=== PATIENT | male | born 1975 | race American Indian/Alaskan Native ===

== ENCOUNTER 2018-01-14 18:05 | Inpatient (IN) | payer MEDICAID ==
[2018-01-14] MEDS ORDERED: Iohexol 350 MG/100 ML VIAL ONE (18:20)
--- NOTE | 2018-01-14 18:37 | ED PDOC ---
Arrival/HPI - General Chief Complaint: Chest Pain Time Seen by Provider: 01/14/18 18:05 Historian: Patient - History of Present Illness Narrative History of Present Illness (Text): 01/14/18 18:31 42 y/o M w/ h/o MN, CAD, DM, s/p sternotomy presenting to the ED for chest pain. Per EMS, patient was at his PCP office when he began having left sided chest and back pain. He was noted to have a HR of 33 and blood pressure of 180s systolic. The patient's HR went to 43 without medical intervention and was given 325mg of aspirin en route to the hospital. Per the patient, he had been experiencing intermittent left sided chest pain for the past several days and was concerned this episode was similar to his previous MN in 2007. The patient denies taking any medication for the pain and reports inconsistent medication compliance in general. He denies dizziness, SOB, syncopal episodes, nausea, emesis, fevers, chills, weakness, jaw pain or numbness/ tingling. Time/Duration: Prior to Arrival Symptom Onset: Sudden Symptom Course: Intermittent Severity Level: 5 Activities at Onset: Rest Context: Other (Doctor's office) Past Medical History - Provider Review Nursing Documentation Reviewed: Yes - Travel History Have you recently traveled outside [place] w/in the past 3 mons?: No - Infectious Disease Hx of Infectious Diseases: None - Cardiac Hx Hypertension: Yes - Endocrine/Metabolic Hx Diabetes Mellitus Type 2: Yes - Psychiatric Hx Anxiety: Yes Hx Depression: Yes Hx Substance Use: No - Surgical History Hx Open Heart Surgery: Yes Other/Comment: aortic valve repair. Family/Social History - Physician Review Nursing Documentation Reviewed: Yes Family/Social History: Unknown Family HX Smoking Status: Never Smoked Hx Alcohol Use: Yes (Red wine once in awhile) Frequency of alcohol use: Socially Hx Substance Use: No Allergies/Home Meds Allergies/Adverse Reactions: Allergies pravastatin Allergy (Verified 01/14/18 18:23) PAIN stomach cramp pain. Home Medications: Home Meds Medication Instructions Recorded Confirmed Alogliptin Benzoate [Nesina] 25 mg PO DAILY 01/14/18 01/14/18 Aspirin [Aspirin EC] 325 mg PO DAILY 01/14/18 01/14/18 Atorvastatin [Lipitor] 1 tab PO DAILY 01/14/18 01/14/18 Carvedilol [Coreg] 1 tab PO DAILY 01/14/18 01/14/18 Clopidogrel [Plavix] 1 tab PO DAILY 01/14/18 01/14/18 Metformin HCl [Glucophage] 1,000 mg PO BID 01/14/18 01/14/18 Multivit with Calcium,Iron,Min 1 tab PO DAILY 01/14/18 01/14/18 [Multiple Vitamins For Women] PARoxetine [Paxil] 1 tab PO DAILY 01/14/18 01/14/18 Valsartan [Valsartan] 1 tab PO DAILY 01/14/18 01/14/18 Review of Systems - Physician Review All systems were reviewed & negative as marked: Yes - Review of Systems Respiratory: absent: SOB, Cough, Sputum Cardiovascular: Chest Pain. absent: Palpitations, Edema, Calf Pain Gastrointestinal: absent: Abdominal Pain, Nausea, Vomiting Musculoskeletal: Back Pain. absent: Neck Pain, Joint Swelling Skin: absent: Rash Neurological: absent: Headache, Dizziness, Focal Weakness Physical Exam Vital Signs Reviewed: Yes Vital Signs Temp Pulse Pulse Resp BP Pulse Ox 01/14/18 21:16 65 18 136/64 100 01/14/18 19:17 66 18 131/64 100 01/14/18 18:16 69 01/14/18 18:05 98.0 F 70 17 154/108 H 100 Temperature: Afebrile Blood Pressure: Normal Pulse: Regular Respiratory Rate: Normal Appearance: Positive for: Well-Appearing, Non-Toxic, Comfortable Pain Distress: Mild Mental Status: Positive for: Alert and Oriented X 3 Finger Stick Blood Glucose: 123 - Systems Exam Head: Present: Atraumatic, Normocephalic Pupils: Present: PERRL Extroacular Muscles: Present: EOMI Neck: Present: Normal Range of Motion Respiratory/Chest: Present: Clear to Auscultation, Good Air Exchange. No: Respiratory Distress, Wheezes, Decreased Breath Sounds Cardiovascular: Present: Regular Rate and Rhythm, Normal S1, S2, Other (Healed sternotomy scar ). No: Murmurs Abdomen: Present: Normal Bowel Sounds. No: Tenderness, Distention Back: Present: Normal Inspection. No: Midline Tenderness Upper Extremity: Present: Normal Inspection. No: Cyanosis, Edema Neurological: Present: GCS=15, CN II-XII Intact, Speech Normal Skin: Present: Warm, Dry, Rashes Psychiatric: Present: Alert, Oriented x 3, Normal Insight, Normal Concentration Medical Decision Making ED Course and Treatment: 01/14/18 18:40 Impression 42 y/o M w/ h/o MN presenting with chest and back pain Differential Includes But Is Not Limited To: ACS Aortic Dissection PE Plan --Labs --CXR --CT Angio --Cardiology consult --Reassess & disposition Progress Notes 01/14/2018 18:40 Chest X-ray IMPRESSION: Cardiomegaly. No focal consolidation or pleural effusion. Dictator: Isaak Salgado MD 01/14/18 19:04 SBP 150/100 w/ HR 70s. SL nitroglycerin ordered. Spoke to Dr. Bland(cardiology) who will see the patient. Labs pending. Signout given to Dr. Partida who will resume the patient's care. - Lab Interpretations Lab Results: 01/14/18 18:59 01/14/18 18:59 Lab Results 01/14/18 18:59: PT 11.5, INR 1.01, APTT 30.4 01/14/18 18:59: Sodium 142, Potassium 4.6, Chloride 104, Carbon Dioxide 23, Anion Gap 20, BUN 14, Creatinine 1.0, Est GFR ( Amer) > 60, Est GFR (Non- Af Amer) > 60, Random Glucose 98, Calcium 10.1, Magnesium 1.8, Total Bilirubin 0.9, AST 24, ALT 49, Alkaline Phosphatase 48, Lactate Dehydrogenase 478, Total Creatine Kinase 165, Troponin I < 0.01, NT-Pro-B Natriuret Pep 117, Total Protein 7.7, Albumin 4.8, Globulin 2.9, Albumin/Globulin Ratio 1.7 01/14/18 18:59: WBC 6.1, RBC 5.22, Hgb 14.6, Hct 41.1 L, MCV 78.7 L, MCH 28.0, MCHC 35.5, RDW 13.7, Plt Count 281, MPV 9.5, Gran % 48.9 L, Lymph % (Auto) 40.1 H, [place] % (Auto) 7.5 H, Eos % (Auto) 3.3, Baso % (Auto) 0.2, Gran # 2.99, Lymph # (Auto) 2.5, [place] # (Auto) 0.5, Eos # (Auto) 0.2, Baso # (Auto) 0.01 - RAD Interpretation Radiology Orders: 01/14/18 18:15 CHEST PORTABLE [RAD] Stat 01/14/18 18:16 ANGIOGRAPHY DISECTION PROTOCOL [CT] Stat - Medication Orders Current Medication Orders: Acetaminophen (Tylenol 325mg Tab) 650 mg PO Q4H PRN PRN Reason: Pain, Mild (1-3) Aspirin (Aspirin) 325 mg PO DAILY [facility] Last Admin: 01/17/18 09:20 Dose: 325 mg Atorvastatin Calcium (Lipitor) 20 mg PO DIN [facility] Last Admin: 01/16/18 17:46 Dose: 20 mg Carvedilol (Coreg) 12.5 mg PO BID [facility] Last Admin: 01/17/18 09:20 Dose: 12.5 mg [facility] Pulse and Blood Pressure Document 01/17/18 09:20 KMS (Rec: 01/17/18 09:20 KMS [place] [id number]) Pulse Pulse Rate (60-90) 84 Blood Pressure Blood Pressure (100/60-150/90) 130/60 Dextrose (Dextrose 50% Inj) 0 ml IV STAT PRN; Protocol PRN Reason: Hypoglycemia Protocol Enoxaparin Sodium (Lovenox) 70 mg SC Q12H [facility] PRN Reason: Protocol Furosemide (Lasix) 40 mg IVP Q12 [facility] Last Admin: 01/17/18 09:20 Dose: 40 mg [facility] Blood Pressure Document 01/17/18 09:20 KMS (Rec: 01/17/18 09:20 KMS [place] [id number]) Blood Pressure Blood Pressure (100/60-150/90) 130/60 IVP Administration Document 01/17/18 09:20 KMS (Rec: 01/17/18 09:20 KMS [place] [id number]) Charges for Administration # of IVP Administrations 1 Dextrose (Dextrose 5% In Water 1000 Ml) 1,000 mls @ 0 mls/hr IV .Q0M PRN; Protocol; Per Protocol PRN Reason: Hypoglycemia Protocol Insulin Human Regular (Humulin R Low) 0 units SC ACHS [facility] PRN Reason: Protocol Last Admin: 01/17/18 08:20 Dose: Not Given Non-Admin Reason: Blood Sugar Parameter MAR Blood Glucose Document 01/17/18 08:20 KMS (Rec: 01/17/18 08:20 KMS [facility] [id number]) Blood Glucose Finger Stick Blood Glucose (70-120) 109 Losartan Potassium (Cozaar) 100 mg PO DAILY [facility] Last Admin: 01/17/18 09:20 Dose: 100 mg Nitroglycerin (Nitrostat Sl Tab) 0.4 mg SL Q5M PRN PRN Reason: Pain, moderate (4-7) Pantoprazole Sodium (Protonix Ec Tab) 40 mg PO 0600 [facility] Last Admin: 01/17/18 05:17 Dose: 40 mg Paroxetine HCl (Paxil) 10 mg PO DAILY [facility] Last Admin: 01/17/18 09:20 Dose: 10 mg Potassium Chloride (K-Dur 20 Meq Er Tab) 20 meq PO BRK [facility] Last Admin: 01/17/18 07:56 Dose: 20 meq Discontinued Medications Clopidogrel Bisulfate (Plavix) 75 mg PO DAILY [facility] Last Admin: 01/15/18 09:52 Dose: Not Given Non-Admin Reason: Patient Refused Heparin Sodium (Porcine) (Heparin) 4,000 units IV ONCE ONE PRN Reason: Protocol Stop: 01/14/18 20:34 Last Admin: 01/14/18 20:54 Dose: 4,000 units eMAR Start Stop Document 01/14/18 20:54 AD (Rec: 01/14/18 20:54 AD [id number]) Intravenous Solution Start Date 01/14/18 Start Time 20:54 MAR aPTT Document 01/14/18 20:54 AD (Rec: 01/14/18 20:54 AD [id number]) aPTT aPTT (secs) 30.4 Heparin Sodium (Porcine) (Heparin) 4,400 units IV STAT STA Stop: 01/15/18 12:17 Last Admin: 01/15/18 12:25 Dose: 4,400 units eMAR Start Stop Document 01/15/18 12:25 EUSTL (Rec: 01/15/18 12:25 EUSTL [id number]) Intravenous Solution Start Date 01/15/18 Start Time 12:25 Heparin Sodium (Porcine) (Heparin) 4,400 units IVP STAT STA PRN Reason: Protocol Stop: 01/16/18 08:56 Last Admin: 01/16/18 09:10 Dose: 4,400 units MAR aPTT Document 01/16/18 09:10 RDS (Rec: 01/16/18 09:10 RDS [id number]) aPTT aPTT (secs) 47.3 IVP Administration Document 01/16/18 09:10 RDS (Rec: 01/16/18 09:10 RDS [id number]) Charges for Administration # of IVP Administrations 1 Heparin Sodium (Porcine) (Heparin) 4,400 units IVP STAT STA PRN Reason: Protocol Stop: 01/16/18 23:34 Last Admin: 01/16/18 23:47 Dose: 4,400 units MAR aPTT Document 01/16/18 23:47 CDE (Rec: 01/16/18 23:47 CDE [id number]) aPTT aPTT (secs) 48.3 IVP Administration Document 01/16/18 23:47 CDE (Rec: 01/16/18 23:47 CDE [id number]) Charges for Administration # of IVP Administrations 1 Heparin Sodium/Sodium Chloride (Heparin 65177 Units/250ml 1/2 Normal Saline) 25 ,000 units in 250 mls @ 10.049 mls/hr IV .Q24H YUMIKO; 8.354 UNITS/KG/HR PRN Reason: Protocol Last Admin: 01/14/18 20:55 Dose: 14.435 mls/hr eMAR Start Stop Document 01/14/18 20:55 AD (Rec: 01/14/18 20:55 AD [id number]) Intravenous Solution Start Date 01/14/18 Start Time 20:55 Heparin Sodium/Sodium Chloride (Heparin 96457 Units/250ml 1/2 Normal Saline) 25 ,000 units in 250 mls @ 10.049 mls/hr IV .Q24H YUM[place]KO; 8.354 UNITS/KG/HR PRN Reason: Protocol Last Admin: 01/17/18 06:48 Dose: 8.35 units/kg/hr, 10.044 mls/hr eMAR Start Stop Document 01/17/18 06:48 CDE (Rec: 01/17/18 06:49 CDE [id number]) Intravenous Solution Start Date 01/17/18 Start Time 06:48 Titration Intervention Document 01/17/18 06:48 CDE (Rec: 01/17/18 06:49 CDE [id number]) Titration Intake Cumulative Intake (Rx) 500 Waste Amount 0 Container Volume 250 Titration Dosing Titration Dose 8.35 IV Rate 10.044 Intake/Decrease Started/Running Cumulative Dose 61205 Nitroglycerin (Nitrostat Sl Tab) 0.4 mg SL STAT STA Stop: 01/14/18 19:04 Last Admin: 01/14/18 19:17 Dose: 0.4 mg Disposition/Present on Arrival - Present on Arrival Any Indicators Present on Arrival: No History of DVT/PE: No History of Uncontrolled Diabetes: No Urinary Catheter: No History of Decub. Ulcer: No History Surgical Site Infection Following: None - Disposition Have Diagnosis and Disposition been Completed?: Yes Diagnosis: Chest pain Disposition: HOSPITALIZED Disposition Time: 19:00 Patient Problems: Current Active Problems Problem Status Onset Chest pain Acute Condition: GOOD
--- NOTE | 2018-01-14 18:41 | RAD ---
Date of service: 01/14/2018 HISTORY: bradycrdia w/ back pain COMPARISON: No prior. FINDINGS: LUNGS: No active pulmonary disease. PLEURA: No significant pleural effusion identified, no pneumothorax apparent. CARDIOVASCULAR: Prior sternotomy with sternal wires in place. Cardiomegaly. OSSEOUS STRUCTURES: No significant abnormalities. VISUALIZED UPPER ABDOMEN: Normal. OTHER FINDINGS: None. IMPRESSION: Cardiomegaly. No focal consolidation or pleural effusion.
[2018-01-14 19:05] LABS: BASO # 0.01 K/mm3 (0.0-2.0); BASO % 0.2 % (0.0-3.0); EOS # 0.2 (0.0-0.7); EOS % 3.3 % (1.5-5.0); GRAN # 2.99 (1.4-6.5); GRAN % 48.9 % (50.0-68.0); HEMOGLOBIN 14.6 g/dL (14.0-18.0); LYMPH # 2.5 (1.2-3.4); LYMPH % 40.1 % (22.0-35.0); MEAN CELL VOLUME 78.7 fl (80.0-105.0); MEAN CORPUSCULAR HGB CONC 35.5 g/dl (31.0-37.0); MEAN PLATELET VOLUME 9.5 fl (7.0-11.0); MONO # 0.5 (0.1-0.6); MONO % 7.5 % (1.0-6.0); RBC 5.22 10^6/uL (3.5-6.1); RED CELL DISTRIBUTION WIDTH 13.7 % (11.5-14.5); WHITE BLOOD COUNT 6.1 10^3/ul (4.5-11.0)
[2018-01-14 19:14] LABS: INR 1.01; PARTIAL THROMBOPLASTIN TIME 30.4 Seconds (25.1-36.5); PROTHROMBIN TIME 11.5 SECONDS (9.4-12.5)
[2018-01-14 19:18] LABS: ALB/GLOB RATIO 1.7 (1.1-1.8); ALBUMIN 4.8 g/dL (3.0-4.8); ALT/SGPT 49 U/L (7-56); AST/SGOT 24 U/L (17-59); BLOOD UREA NITROGEN 14 mg/dL (7-21); CALCIUM 10.1 mg/dL (8.4-10.5); GFR NON-AFRICAN AMERICAN > 60
--- NOTE | 2018-01-14 19:25 | ED PDOC ---
Physical Exam Vital Signs Temp Pulse Pulse Resp BP Pulse Ox 01/14/18 19:17 66 18 131/64 100 01/14/18 18:16 69 01/14/18 18:05 98.0 F 70 17 154/108 H 100 Finger Stick Blood Glucose: 123 Medical Decision Making ED Course and Treatment: 01/14/18 19:05 Patient has a past medical history of [place], CAD, diabetes, AVR, complaining of left-sided chest pain. Was at PMDs office, had chest pain became hypertensive in ryann 180s, finesse to the 30s, improved w/ asa. Currently pending labs and Angio Chest CT to rule out aortic dissection. Pt non-compliant w/ plavix. 01/14/18 20:30 EKG reviewed-66, NSR, Bigeminy w/ PVCs, No stemi. No previous comparison ASA given previously Labs and imaging reviewed Elevated Heart score: 5 RF: 2 EK Age: 0 Story: 2 troponin:0 trop, and bnp unremarkable. no dissection appreciate consult w/ Dr. Bland- we are to start heparin and place pt on tele if CT is negative. 01/14/2018 20:08 Angio Chest/Abd/Pelvis CT IMPRESSION: No acute findings or significant abnormalities are noted within the abdomen and pelvis. No evidence of aortic dissection aneurysm, or other vascular abnormalities. No acute findings or significant abnormalities within the chest. Dictator: Remedios Sevilla MD 01/14/18 20:51 Pt does not remember his PMD that he went to earlier ?Dr. Bergman?, will admit to hospitalist. appreciate consult w/ Dr. Keane- we are to admit under hospitalist service - Lab Interpretations Lab Results: 01/14/18 18:59 01/14/18 18:59 Lab Results 01/14/18 18:59: PT 11.5, INR 1.01, APTT 30.4 01/14/18 18:59: Sodium 142, Potassium 4.6, Chloride 104, Carbon Dioxide 23, Anion Gap 20, BUN 14, Creatinine 1.0, Est GFR ( Amer) > 60, Est GFR (Non- Af Amer) > 60, Random Glucose 98, Calcium 10.1, Magnesium 1.8, Total Bilirubin 0.9, AST 24, ALT 49, Alkaline Phosphatase 48, Lactate Dehydrogenase 478, Total Creatine Kinase 165, Troponin I < 0.01, NT-Pro-B Natriuret Pep 117, Total Protein 7.7, Albumin 4.8, Globulin 2.9, Albumin/Globulin Ratio 1.7 01/14/18 18:59: WBC 6.1, RBC 5.22, Hgb 14.6, Hct 41.1 L, MCV 78.7 L, MCH 28.0, MCHC 35.5, RDW 13.7, Plt Count 281, MPV 9.5, Gran % 48.9 L, Lymph % (Auto) 40.1 H, [place] % (Auto) 7.5 H, Eos % (Auto) 3.3, Baso % (Auto) 0.2, Gran # 2.99, Lymph # (Auto) 2.5, [place] # (Auto) 0.5, Eos # (Auto) 0.2, Baso # (Auto) 0.01 - RAD Interpretation Radiology Orders: 01/14/18 18:15 CHEST PORTABLE [RAD] Stat 01/14/18 18:16 ANGIOGRAPHY DISECTION PROTOCOL [CT] Stat - Medication Orders Current Medication Orders: Heparin Sodium/Sodium Chloride (Heparin 74095 Units/250ml 1/2 Normal Saline) 25 ,000 units in 250 mls @ 14.435 mls/hr IV .[id number] YUM[place]KO; 12 UNITS/KG/HR PRN Reason: Protocol Discontinued Medications Heparin Sodium (Porcine) (Heparin) 4,000 units IV ONCE ONE PRN Reason: Protocol Stop: 01/14/18 20:34 Nitroglycerin (Nitrostat Sl Tab) 0.4 mg SL STAT STA Stop: 01/14/18 19:04 Last Admin: 01/14/18 19:17 Dose: 0.4 mg - Scribe Statement The provider has reviewed the documentation as recorded by the Leigh Grullon Provider Scribe Attestation: All medical record entries made by the Leigh were at my direction and personally dictated by me. I have reviewed the chart and agree that the record accurately reflects my personal performance of the history, physical exam, medical decision making, and the department course for this patient. I have also personally directed, reviewed, and agree with the discharge instructions and disposition. Disposition/Present on Arrival - Present on Arrival Any Indicators Present on Arrival: No History of DVT/PE: No History of Uncontrolled Diabetes: No Urinary Catheter: No History of Decub. Ulcer: No History Surgical Site Infection Following: None - Disposition Have Diagnosis and Disposition been Completed?: Yes Diagnosis: Chest pain Disposition: HOSPITALIZED Disposition Time: 20:30 Patient Problems: Current Active Problems Problem Status Onset Chest pain Acute Condition: GOOD Discharge Instructions (ExitCare): Chest Pain (ED) Referrals: PCP,NO [Primary Care Provider] - Follow up with primary Forms: [employer] (Latvian)
[2018-01-14 19:34] LABS: B-TYPE NATRIURETIC PEPTIDE 117 pg/mL (0-450); TROPONIN I < 0.01 ng/mL
[2018-01-14] MEDS ORDERED: Heparin25000 units/250ml 1/2NS 25,000 UNITS/250 ML BAG IV SCH (20:45)
[2018-01-14] MEDS ORDERED: Dextrose 50% SYRINGE Inj (50 ml) IV PRN (21:33)
--- NOTE | 2018-01-14 21:45 | CP.PCM.HP ---
<Carolyne Spencer - Last Filed: 01/14/18 21:54> History of Present Illness - History of Present Illness History of Present Illness: PGY-1 H&P for Dr. Keane's service Patient is a 42 yo male w/ PMH of [place], CAD, DM2, HTN, anxiety, and depression who presents to the hospital for evaluation of low heart rate, chest pain, and back pain. Patient reports he was at his doctors office when she noted patient to have an elevated blood pressure and low heart rate in the 30s. His PCP suggested he come to the emergency department. Patient states this chest pain has been ongoing daily since his aortic valve replacement about 2-3 years ago. He describes the pain to be a sharp pain radiating to his back, daily and constant in nature, 4/10 in pain currently, worsened when he exerts himself. He says he took nothing at home for the pain for relief. Patient states the pain started as soon as he awoke today and occurs at rest but worsened with exertion. He had a prior IL 9 years ago but this episode is not similar to the one he as prior. PMH- IL, CAD, HTN, DM, anxiety, depression PSH- Aortic valve replacement FH- HTN, DM, dementia (mom) Meds: coreg 25mg daily, lipitor 20mg daily, alogliptin 25d, plavix 75mg daily, asa 325 daily, valsartan 320mg daily, paxil 10mg daily, metformin 1000mg bid Allergies: pravstatin (muscle cramps) Social: Denies tobacco and drug use; 1 wine glass per month code: Full Code PMD: Does not remember (dr. garnett in [place]??) Present on Admission - Present on Admission Any Indicators Present on Admission: No Review of Systems - Constitutional Constitutional: Excessive Sweating, Headache, Weight Loss. absent: Chills, Fatigue, Fever - EENT Eyes: absent: Blind Spots, Blurred Vision, Change in Vision Ears: absent: Dizziness - Cardiovascular Cardiovascular: Chest Pain, Chest Pain at Rest, Chest Pain with Activity, Diaphoresis, Radiating Pain. absent: Dyspnea, Dyspnea on Exertion, Pain Radiating to Arm/Neck/Jaw, Lightheadedness - Respiratory Respiratory: absent: Cough, Dyspnea - Gastrointestinal Gastrointestinal: absent: Abdominal Pain, Constipation, Diarrhea, Nausea, Vomiting - Genitourinary Genitourinary: absent: Change in Urinary Stream, Difficulty Urinating, Dysuria - Musculoskeletal Musculoskeletal: Back Pain. absent: Numbness, Tingling - Neurological Neurological: Headaches. absent: Dizziness Past Patient History - Infectious Disease Hx of Infectious Diseases: None - Past Social History Smoking Status: Never Smoked - CARDIAC Hx Hypertension: Yes - ENDOCRINE/METABOLIC Hx Diabetes Mellitus Type 2: Yes - PSYCHIATRIC Hx Anxiety: Yes Hx Depression: Yes Hx Substance Use: No - SURGICAL HISTORY Hx Open Heart Surgery: Yes Other/Comment: aortic valve repair. Meds Allergies/Adverse Reactions: Allergies Allergy/AdvReac Type Severity Reaction Status Date / Time pravastatin Allergy PAIN Verified 01/14/18 18:23 Physical Exam - Constitutional Appears: Non-toxic, No Acute Distress - Head Exam Head Exam: NORMAL INSPECTION, NORMOCEPHALIC - Eye Exam Eye Exam: EOMI, Normal appearance. absent: Nystagmus, Scleral icterus - ENT Exam ENT Exam: Mucous Membranes Moist, Normal Exam - Respiratory Exam Respiratory Exam: Clear to Auscultation Bilateral, NORMAL BREATHING PATTERN. absent: Rales, Rhonchi, Wheezes - Cardiovascular Exam Cardiovascular Exam: REGULAR RHYTHM, +S1, +S2. absent: Bradycardia, Tachycardia - GI/Abdominal Exam GI & Abdominal Exam: Normal Bowel Sounds, Soft. absent: Distended, Firm, Guarding, Tenderness - Extremities Exam Extremities exam: Positive for: normal inspection. Negative for: calf tenderness, pedal edema - Back Exam Back exam: NORMAL INSPECTION - Neurological Exam Neurological exam: Alert, Oriented x3 - Psychiatric Exam Psychiatric exam: Normal Affect, Normal Mood - Skin Skin Exam: Intact, Normal Color Results - Vital Signs Recent Vital Signs: Last Vital Signs Temp 98.0 F 01/14/18 18:05 Pulse 65 01/14/18 21:16 Resp 18 01/14/18 21:16 BP 136/64 01/14/18 21:16 Pulse Ox 100 01/14/18 21:16 - Labs Result Diagrams: 01/14/18 18:59 01/14/18 18:59 Assessment & Plan - Assessment and Plan (Free Text) Assessment: Patient is a 42 yo male who presents to hospital for evaluation of low heart rate, chest pain, and back pain; initial troponins negative Plan: Chest Pain Cardiology Consulted: Dr. Bland- Heparin drip started; further recommendations apprecaited Heart Healthy Diet w/ carb diet; NPO past midnight R/O ACS; Trop <0.01; Repeat EKG q6 x3; Repeat Cardiac ISO q6 x3 Coreg 25mg po daily, Lipitor 20mg po daily, Plavix 75mg po daily, Aspirin 325mg po daily Nitroglycerin 0.4mg SL prn Heparin drip 86857 units HTN Valsartan 320mg po daily CAD Lipitor 20mg po din sangeetha DM Accuchecks Hypoglycemic protocol ISS- low dose Hx of depression Paxil 10mg po daily PPX: DVT ppx: Heparin drip 2500 units GI ppx: Protonix 40mg tab <Tyson Keane - Last Filed: 01/18/18 06:13> Results - Vital Signs Recent Vital Signs: Last Vital Signs Temp 97.9 F 01/18/18 00:01 Pulse 67 01/18/18 00:01 Resp 18 01/18/18 00:01 BP 114/55 L 01/18/18 00:01 Pulse Ox 98 01/17/18 06:00 - Labs Result Diagrams: 01/17/18 06:45 01/17/18 06:45 Labs: Laboratory Results - last 24 hr 01/17/18 01/17/18 01/17/18 06:45 06:45 06:45 WBC 5.7 RBC 5.21 Hgb 14.2 Hct 41.3 L MCV 79.3 L MCH 27.3 MCHC 34.4 RDW 14.0 Plt Count 264 MPV 9.0 Gran % 46.8 L Lymph % (Auto) 39.8 H [place] % (Auto) 10.6 H Eos % (Auto) 2.8 Baso % (Auto) 0.0 Gran # 2.68 Lymph # (Auto) 2.3 [place] # (Auto) 0.6 Eos # (Auto) 0.2 Baso # (Auto) 0.00 APTT 59.5 H Sodium 142 Potassium 3.9 Chloride 104 Carbon Dioxide 25 Anion Gap 17 BUN 17 Creatinine 1.1 Est GFR ( Amer) > 60 Est GFR (Non-Af Amer) > 60 POC Glucose (mg/dL) Random Glucose 116 H Calcium 9.4 Total Bilirubin 0.9 AST 38 ALT 61 H Alkaline Phosphatase 54 Total Protein 7.4 Albumin 4.4 Globulin 3.0 Albumin/Globulin Ratio 1.5 01/17/18 01/17/18 01/17/18 07:36 11:55 13:15 WBC RBC Hgb Hct MCV MCH MCHC RDW Plt Count MPV Gran % Lymph % (Auto) [place] % (Auto) Eos % (Auto) Baso % (Auto) Gran # Lymph # (Auto) [place] # (Auto) Eos # (Auto) Baso # (Auto) APTT 65.9 H Sodium Potassium Chloride Carbon Dioxide Anion Gap BUN Creatinine Est GFR ( Amer) Est GFR (Non-Af Amer) POC Glucose (mg/dL) 109 104 Random Glucose Calcium Total Bilirubin AST ALT Alkaline Phosphatase Total Protein Albumin Globulin Albumin/Globulin Ratio 01/17/18 01/17/18 16:57 21:44 WBC RBC Hgb Hct MCV MCH MCHC RDW Plt Count MPV Gran % Lymph % (Auto) [place] % (Auto) Eos % (Auto) Baso % (Auto) Gran # Lymph # (Auto) [place] # (Auto) Eos # (Auto) Baso # (Auto) APTT Sodium Potassium Chloride Carbon Dioxide Anion Gap BUN Creatinine Est GFR ( Amer) Est GFR (Non-Af Amer) POC Glucose (mg/dL) 88 91 Random Glucose Calcium Total Bilirubin AST ALT Alkaline Phosphatase Total Protein Albumin Globulin Albumin/Globulin Ratio Attending/Attestation - Attestation I have personally seen and examined this patient.: Yes I have fully participated in the care of the patient.: Yes I have reviewed all pertinent clinical information: Yes
[2018-01-14] MEDS: Insulin Reg-LOW-Coverage SC SCH (22:30)
[2018-01-14] MEDS: Heparin25000 units/250ml 1/2NS 25,000 UNITS/250 ML BAG IV SCH (23:57)
[2018-01-15 02:33] VITALS: BMI 10.2
[2018-01-15] MEDS: Pantoprazole 40 mg EC Tab PO SCH (05:41)
[2018-01-15] MEDS: Insulin Reg-LOW-Coverage SC SCH ×4 (07:43→21:45)
--- NOTE | 2018-01-15 12:06 | CT ---
Date of service: 01/14/[address] protocol Indication: bradycardia w/ elevated BP and back pain Technique: Contiguous axial images of the chest, abdomen, and pelvis. Coronal and Sagittal reformats generated and reviewed. This CT exam was performed using 1 or more of the following dose reduction techniques: Automated exposure control, adjustment of the MAA and/or kV according to patient size, and/or use of iterative reconstruction technique. 100 mL Omnipaque 350 IV. Radiation dose: Total exam DLP = 2731.90 MGy-cm. Comparison: Chest x-ray performed 01/14/18 Findings: Visualized portions of the inferior thyroid gland appear unremarkable. The mediastinal and hilar vascular structures appear within normal limits. Cardiomegaly. No large central or segmental pulmonary embolus evident. No evidence of aortic dissection or aneurysmal dilatation. Atherosclerotic calcifications of the aorta an branches. No focal consolidation. No pleural effusion. No pneumothorax. No suspicious pulmonary nodules measuring greater than 5 mm. Hypoattenuation of the liver compatible with hepatic steatosis. The spleen, kidneys, pancreas, adrenal glands, and gallbladder appear unremarkable. The stomach is nondistended. Small hiatal hernia/distal esophageal wall thickening. The bowel loops appear within normal limits of caliber without evidence of intestinal obstruction. There is no definite free air. The urinary bladder appears unremarkable. Bilateral gynecomastia. Degenerative changes of the spine. Median sternotomy wires. Impression: No acute pathology identified. Additional findings as above. Preliminary impression was provided by virtual radiologic.
[2018-01-15] MEDS: Potassium Chloride 20 mEq ER Tab PO SCH (12:37)
--- NOTE | 2018-01-15 23:13 | CON ---
Copied To: Jaskaran Loomis MD Attending MD: Jaskaran Loomis MD DATE: 01/15/2018 REASON FOR CONSULTATION: Palpitation, ventricular bigeminy as well as chest tightness. HISTORY OF PRESENT ILLNESS: The patient is 42-years old, morbidly obese male, who according to him underwent aortic valve repair 3 years ago at 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 The patient was placed on aspirin and Plavix, however, he did not take any Plavix because of rectal bleeding. The patient went to his primary physician to renew his metformin, however, because of abnormal EKG, was referred for admission. The patient denies any chest pain at this time. SOCIAL HISTORY: The patient is non-smoker. MEDICATIONS: Aspirin 325 mg once a day, Coreg 12.5 mg once a day, Cozaar 100 mg once a day, intravenous heparin infusion therapeutic regimen for acute coronary syndrome, Lipitor 20 mg once a day, Paxil 10 mg once a day. REVIEW OF SYSTEMS: The patient has history of anxiety. He denies any auditory hallucinations, but he states that he see at times visions. PHYSICAL EXAMINATION GENERAL: The patient is a middle aged male who does not appear to be in acute distress. VITAL SIGNS: Blood pressure 126/79, heart rate 63, temperature 97.9, respirations 20. HEENT: Normocephalic. CHEST: Absent breath sound over the bases. HEART: S1, S2, irregular. ABDOMEN: Soft. EXTREMITIES: 1+ pitting edema. LABORATORY DATA: Hemoglobin and hematocrit is 14.6 and 41.1. White count and platelet count are within normal limits. Today's SMA-7 is entirely within normal limits. Two sets of troponins are negative. INR is 1.01. The latest PTT is 49.1. Chest CT angio report, no acute pathology identified. Chest x-ray revealed cardiomegaly with [id number] congestive heart failure. Preliminary echocardiographic study revealed severe biventricular failure. ASSESSMENT: 1. Congestive heart failure. 2. Chest pain, myocardial infarction is ruled out. 3. Status post aortic valve repair 2 years ago, 4. History of anxiety. RECOMMENDATIONS: Continue intravenous heparin infusion therapeutic regimen, continue Cozaar 12.5 mg twice a day, aspirin 325 mg once a day, Coreg 12.5 mg twice a day, start Lasix at 40 mg intravenously twice a day with K-Dur 20 mEq orally once a day. I will thoroughly discuss the case with the patient's mother, who just arrived to the floor to get a detailed past medical history. I am trying to contact the patient's sticker on in [facility]. Jaskaran Loomis MD
[2018-01-16] MEDS: Heparin25000 units/250ml 1/2NS 25,000 UNITS/250 ML BAG IV SCH ×2 (01:19→23:52)
--- NOTE | 2018-01-16 05:09 | CARD ---
APPROVED REPORT Date of service: 01/15/2018 EKG Measurement Heart [id number] <Conclusion> Sinus rhythm with 1st degree AV block Right bundle branch block Left ventricular hypertrophy with repolarization abnormality Abnormal ECG
--- NOTE | 2018-01-16 05:12 | CARD ---
APPROVED REPORT Date of service: 01/15/2018 EKG Measurement Heart [id number] [id number] <Conclusion> Sinus rhythm with frequent premature ventricular complexes in a pattern of bigeminy Right bundle branch block Voltage criteria for left ventricular hypertrophy Abnormal ECG
--- NOTE | 2018-01-16 05:17 | CARD ---
APPROVED REPORT Date of service: 01/14/2018 EKG Measurement Heart [id number] 186P50 [id number] <Conclusion> Sinus rhythm with frequent premature ventricular complexes in a pattern of bigeminy Right bundle branch block Moderate voltage criteria for LVH, may be normal variant Abnormal ECG
--- NOTE | 2018-01-16 05:40 | CARD ---
APPROVED REPORT Date of service: 01/15/2018 EXAM: Two-dimensional and M-mode echocardiogram with Doppler and color Doppler. INDICATION BRADYCARDIA, CP 2D DIMENSIONS IVSd1.6 (0.7-1.1cm)LVDd5.4 (3.9-5.9cm) PWd1.9 (0.7-1.1cm)LVDs4.9 (2.5-4.0cm) FS (%) 9.6 %LVEF (%)21.0 (>50%) M-Mode DIMENSIONS Left Atrium (MM)4.80 (2.5-4.0cm)Aortic Root3.70 (2.2-3.7cm) Aortic Cusp Exc.2.60 (1.5-2.0cm) Aortic Valve AoV Peak Spyznzrw680.0cm/Andrei Peak GR.13mmHg Mitral Valve MV E Psntquig40.1cm/sMV A Heeuhcgp617.0cm/sE/A ratio0.5 TDI Lateral E' Peak V5.87cm/sMedial E' Peak V5.87cm/sE/Lateral E'9.0 E/Medial E'9.0 Tricuspid Valve TR Peak Whwqzhbm757fo/sRAP [id number] Peak Gr.29mmHg [id number] LEFT VENTRICLE The Left Ventricle is mildly dilated. There is moderate concentric left ventricular hypertrophy. The systolic function is severely impaired. There is global hypokinesis of the left ventricle. RIGHT VENTRICLE The right ventricle is mildly dilated. ATRIA The left atrium is moderately dilated. The right atrium is moderately dilated. The interatrial septum is intact with no evidence for an atrial septal defect. AORTIC VALVE The aortic valve is normal in structure. There is trace aortic regurgitation. MITRAL VALVE The mitral valve is normal in structure. Mitral regurgitation is mild. TRICUSPID VALVE The tricuspid valve is normal in structure. There is mild tricuspid regurgitation. PULMONIC VALVE The pulmonary valve is normal in structure. GREAT VESSELS The aortic root is normal in size. The IVC is normal in size and collapses >50% with inspiration. PERICARDIAL EFFUSION There is no pleural effusion. There is no pericardial effusion. <Conclusion> Four chamber enlargement. Severely reduced LV systolic function with global hypokinesis. Moderate concentric LVH. Mild MR and TR.
[2018-01-16] MEDS: Pantoprazole 40 mg EC Tab PO SCH (07:15)
[2018-01-16] MEDS: Insulin Reg-LOW-Coverage SC SCH ×4 (07:40→21:22)
[2018-01-16] MEDS: Potassium Chloride 20 mEq ER Tab PO SCH (07:57)
[2018-01-16 08:20] LABS: EOS # 0.2 (0.0-0.7); EOS % 2.7 % (1.5-5.0); GRAN # 2.83 (1.4-6.5); GRAN % 51.2 % (50.0-68.0); HEMOGLOBIN 14.7 g/dL (14.0-18.0); LYMPH # 2.2 (1.2-3.4); LYMPH % 38.9 % (22.0-35.0); MEAN CORPUSCULAR HEMOGLOBIN 28.1 pg (25.0-35.0); MEAN CORPUSCULAR HGB CONC 35.5 g/dl (31.0-37.0); MONO # 0.4 (0.1-0.6); MONO % 7.2 % (1.0-6.0); RBC 5.24 10^6/uL (3.5-6.1); RED CELL DISTRIBUTION WIDTH 14.1 % (11.5-14.5); WHITE BLOOD COUNT 5.5 10^3/ul (4.5-11.0)
[2018-01-16 08:49] LABS: ALB/GLOB RATIO 1.6 (1.1-1.8); ALBUMIN 4.5 g/dL (3.0-4.8); ALT/SGPT 55 U/L (7-56); AST/SGOT 29 U/L (17-59); BLOOD UREA NITROGEN 16 mg/dL (7-21); GFR NON-AFRICAN AMERICAN > 60
--- NOTE | 2018-01-16 12:44 | CP.PCM.PN ---
<Marie Snyder - Last Filed: 01/16/18 12:46> Subjective - Date & Time of Evaluation Date of Evaluation: 01/15/18 Time of Evaluation: 10:15 - Subjective Subjective: Marie Snyder, PGY-1 Progress Note for Hospitalist Service Patient seen and examined this morning. No acute events overnight. Patient resting comfortably in bed in no acute distress. On heparin drip. Pulse in the 60s overnight. Admits to improved chest and back pain. No new complaints today. Objective - Vital Signs/Intake and Output Vital Signs (last 24 hours): Temp Pulse Resp BP Pulse Ox 97.4 F L 71 20 118/71 98 01/16/18 00:01 01/16/18 10:00 01/16/18 00:01 01/16/18 09:09 01/15/18 17:29 Intake and Output: 01/16/18 01/16/18 06:59 18:59 Intake Total 1412.5 80 Balance 1412.5 80 - Medications Medications: Current Medications Acetaminophen (Tylenol 325mg Tab) 650 mg PO Q4H PRN PRN Reason: Pain, Mild (1-3) Aspirin (Aspirin) 325 mg PO DAILY [facility] Last Admin: 01/16/18 09:09 Dose: 325 mg Atorvastatin Calcium (Lipitor) 20 mg PO DIN [facility] Last Admin: 01/15/18 17:33 Dose: 20 mg Carvedilol (Coreg) 12.5 mg PO BID [facility] Last Admin: 01/16/18 09:09 Dose: 12.5 mg Dextrose (Dextrose 50% Inj) 0 ml IV STAT PRN; Protocol PRN Reason: Hypoglycemia Protocol Furosemide (Lasix) 40 mg IVP Q12 [facility] Last Admin: 01/16/18 09:09 Dose: 40 mg Dextrose (Dextrose 5% In Water 1000 Ml) 1,000 mls @ 0 mls/hr IV .Q0M PRN; Protocol; Per Protocol PRN Reason: Hypoglycemia Protocol Heparin Sodium/Sodium Chloride (Heparin 07490 Units/250ml 1/2 Normal Saline) 25 ,000 units in 250 mls @ 10.049 mls/hr IV .Q24H YUMIKO; 8.354 UNITS/KG/HR PRN Reason: Protocol Last Titration: 01/16/18 09:15 Dose: 8.35 units/kg/hr, 10.044 mls/hr Insulin Human Regular (Humulin R Low) 0 units SC ACHS [facility] PRN Reason: Protocol Last Admin: 01/16/18 11:52 Dose: Not Given Losartan Potassium (Cozaar) 100 mg PO DAILY [facility] Last Admin: 01/16/18 09:09 Dose: 100 mg Nitroglycerin (Nitrostat Sl Tab) 0.4 mg SL Q5M PRN PRN Reason: Pain, moderate (4-7) Pantoprazole Sodium (Protonix Ec Tab) 40 mg PO 0600 [facility] Last Admin: 01/16/18 07:15 Dose: Not Given Paroxetine HCl (Paxil) 10 mg PO DAILY [facility] Last Admin: 01/16/18 09:09 Dose: 10 mg Potassium Chloride (K-Dur 20 Meq Er Tab) 20 meq PO BRK [facility] Last Admin: 01/16/18 07:57 Dose: 20 meq - Labs Labs: 01/16/18 08:00 01/16/18 08:00 PT 11.5 SECONDS (9.4-12.5) 01/14/18 18:59 INR 1.01 01/14/18 18:59 APTT 47.3 Seconds (25.1-36.5) H 01/16/18 08:00 - Constitutional Appears: No Acute Distress - Head Exam Head Exam: ATRAUMATIC, NORMOCEPHALIC - Eye Exam Eye Exam: EOMI Pupil Exam: PERRL - ENT Exam ENT Exam: Mucous Membranes Moist - Respiratory Exam Respiratory Exam: Clear to Ausculation Bilateral. absent: Respiratory Distress - Cardiovascular Exam Cardiovascular Exam: REGULAR RHYTHM, RRR, +S1, +S2, Murmur - GI/Abdominal Exam GI & Abdominal Exam: Normal Bowel Sounds. absent: Guarding, Rigid - Extremities Exam Extremities Exam: Normal Inspection. absent: Calf Tenderness - Back Exam Back Exam: NORMAL INSPECTION - Neurological Exam Neurological Exam: Alert, Awake, Oriented x3 Assessment and Plan - Assessment and Plan (Free Text) Assessment: This is a 42 year old male with PMH of CHF with reduced EF, aortic valve repair 2 years ago, NV, CAD, HT, depression and anxiety presenting to hospital for management of bradycardia and chest pain. Echo pending. On heparin drip and IV lasix. Awaiting records from [place] due to extensive cardiac history. Troponins are negative at this time. Bradycardia r/o NV -EKG on admission showed rate of 66, NSR with PVC and bigeminy. No STEMI -troponins negative x2 -pulse 60s overnight -holding coreg at this time due to bradycardia -on heparin drip -heart healthy diet -cardiology on consult, Dr. Orona CHF -unknown previous echo -obtaining medical records from [place] -received aortic valce repair two years ago -lasix 40mg IV q12 -echo pending -CT chest final read pending -CXR showed cardiomegaly, no other acute findings History of HTN: -losartan 100mg History of CAD: -Lipitor 20mg DIN History of DM: -hypoglycemic protocol -insulin human regular ACHS History of depression -currently on paroxetine 10mg PPX with heparin and protonix g Patient seen with and case discussed with attending, Dr. Alfaro <Amanda Alfaro R - Last Filed: 01/16/18 13:31> Objective - Vital Signs/Intake and Output Vital Signs (last 24 hours): Temp Pulse Resp BP Pulse Ox 97.4 F L 71 20 118/71 98 01/16/18 00:01 01/16/18 10:00 01/16/18 00:01 01/16/18 09:09 01/15/18 17:29 Intake and Output: 01/16/18 01/16/18 06:59 18:59 Intake Total 1412.5 80 Balance 1412.5 80 - Medications Medications: Current Medications Acetaminophen (Tylenol 325mg Tab) 650 mg PO Q4H PRN PRN Reason: Pain, Mild (1-3) Aspirin (Aspirin) 325 mg PO DAILY [facility] Last Admin: 01/16/18 09:09 Dose: 325 mg Atorvastatin Calcium (Lipitor) 20 mg PO DIN [facility] Last Admin: 01/15/18 17:33 Dose: 20 mg Carvedilol (Coreg) 12.5 mg PO BID [facility] Last Admin: 01/16/18 09:09 Dose: 12.5 mg Dextrose (Dextrose 50% Inj) 0 ml IV STAT PRN; Protocol PRN Reason: Hypoglycemia Protocol Furosemide (Lasix) 40 mg IVP Q12 [facility] Last Admin: 01/16/18 09:09 Dose: 40 mg Dextrose (Dextrose 5% In Water 1000 Ml) 1,000 mls @ 0 mls/hr IV .Q0M PRN; Protocol; Per Protocol PRN Reason: Hypoglycemia Protocol Heparin Sodium/Sodium Chloride (Heparin 84043 Units/250ml 1/2 Normal Saline) 25 ,000 units in 250 mls @ 10.049 mls/hr IV .Q24H YUMIKO; 8.354 UNITS/KG/HR PRN Reason: Protocol Last Titration: 01/16/18 09:15 Dose: 8.35 units/kg/hr, 10.044 mls/hr Insulin Human Regular (Humulin R Low) 0 units SC ACHS YUMIKO PRN Reason: Protocol Last Admin: 01/16/18 11:52 Dose: Not Given Losartan Potassium (Cozaar) 100 mg PO DAILY [facility] Last Admin: 01/16/18 09:09 Dose: 100 mg Nitroglycerin (Nitrostat Sl Tab) 0.4 mg SL Q5M PRN PRN Reason: Pain, moderate (4-7) Pantoprazole Sodium (Protonix Ec Tab) 40 mg PO 0600 [facility] Last Admin: 01/16/18 07:15 Dose: Not Given Paroxetine HCl (Paxil) 10 mg PO DAILY [facility] Last Admin: 01/16/18 09:09 Dose: 10 mg Potassium Chloride (K-Dur 20 Meq Er Tab) 20 meq PO BRK [facility] Last Admin: 01/16/18 07:57 Dose: 20 meq - Labs Labs: 01/16/18 08:00 01/16/18 08:00 PT 11.5 SECONDS (9.4-12.5) 01/14/18 18:59 INR 1.01 01/14/18 18:59 APTT 47.3 Seconds (25.1-36.5) H 01/16/18 08:00 Attending/Attestation - Attestation I have personally seen and examined this patient.: Yes I have fully participated in the care of the patient.: Yes I have reviewed all pertinent clinical information, including history, physical exam and plan: Yes Notes (Text): Please note this note is for 01/15/18. Patient seen and examined by me at 10:20AM with resident 01/15/18. Case including HPI, physical exam, and assessment and plan discussed with resident. Agree with above with following additions/corrections. Patient is a 42-year-old male with past medical history significant for coronary artery disease status post NV, valve repair, type 2 diabetes, hypertension, depression, and anxiety that presented to the emergency room for low heart rate, chest pain, and back pain. Patient states he went to his primary care doctor for metformin refill. At that time he was found to have a heart rate in the 30s and was sent to the ED. Patient states that chest pain and back are chronic and has been going on since have open heart surgery 2 years ago. Patient states he has been feeling more tired and weak lately. He denies any current shortness of breath. No headaches or dizziness. No fevers and chills. No nausea, vomiting, or abdominal pain. No dysuria. No diarrhea or constipation. Physical exam: General: Awake and alert lying in bed in no acute distress HEENT: Normocephalic atraumatic. Pupils equal reactive. Extraocular muscles intact. No scleral icterus. Oropharynx is pink and moist. No pharyngeal erythema or exudate appreciated. Neck is supple. Cardiovascular: Normal S1, S2. No murmurs, rubs, or gallops appreciated Pulmonary: Normal respiratory effort. No rhonchi, rales or wheezing appreciated. Gastrointestinal: Soft, nondistended. nontender. Positive bowel sounds all 4 quadrants, no guarding. Musculoskeletal: Normal range of motion all extremities. No calf tenderness. No edema appreciated. Central nervous system: AAOx3. CN2-12 grossly intact. Dermatologic: Skin warm and dry, positve well healed scar anterior chest wall. Assessment and plan: Patient is a 42-year-old male with past medical history significant for coronary artery disease status post NV, valve repair, type 2 diabetes, hypertension, depression, and anxiety that presented to the emergency room for low heart rate, chest pain, and back pain. 1. Bradycardia. Patient's heart rate in the 60s on potline monitor. Patient is having bigeminy which may be falsely showing up as bradycardia. 2-D echo has been ordered. Cardiology consulted, recommendations appreciated. Restarted on Coreg per cardiology. Continue with heparin drip. Continue to monitor on telemetry. 2. Chest pain/coronary artery disease. Pain is chronic. Continue with Coreg and losartan. Continue Lipitor. Patient is unable to tolerate Plavix secondary to rectal bleeding. Continue with aspirin. Continue heparin drip. Cardiology following, recommendations appreciated. 2-D echo pending. Troponins within normal limits. CTA chest per radiologist showed no acute pathology identified. 3. Hypertension. Continue Coreg. Patient was on valsartan at home. Changed to losartan here. 4. Type 2 diabetes. Continue with insulin sliding scale. Monitor Accu-Cheks. 5. Anxiety and depression. Continue home Paxil. 6. GI/DVT prophylaxis. Protonix and heparin drip. Case was discussed in detail with the patient regarding current diagnosis and treatment plan. Was called in the afternoon by decontamination technician. Patient with ejection fraction of approximately 20% and left ventricular hypertrophy. Patient started on IV Lasix by cardiology. 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
--- NOTE | 2018-01-16 13:18 | CP.PCM.PN ---
<Marie Snyder - Last Filed: 01/16/18 13:14> Subjective - Date & Time of Evaluation Date of Evaluation: 01/16/18 Time of Evaluation: 13:15 - Subjective Subjective: Marie Snyder, PGY-1 Progress Note for Hospitalist Service Patient seen and examined at bedside this morning. No acute events overnight. Pulse was 60-70s overnight. Continuing to receive lasix and on heparin drip. Started on coreg but will hold if SBP <100 or pulse < 60. State last BM was wednesday but does not want stool softeners at this time. Attempting to receive records from [facility]. Admits to chest pain that is improved from admission. No new complaints. Objective - Vital Signs/Intake and Output Vital Signs (last 24 hours): Temp Pulse Resp BP Pulse Ox 97.4 F L 71 20 118/71 98 01/16/18 00:01 01/16/18 10:00 01/16/18 00:01 01/16/18 09:09 01/15/18 17:29 Intake and Output: 01/16/18 01/16/18 06:59 18:59 Intake Total 1412.5 80 Balance 1412.5 80 - Medications Medications: Current Medications Acetaminophen (Tylenol 325mg Tab) 650 mg PO Q4H PRN PRN Reason: Pain, Mild (1-3) Aspirin (Aspirin) 325 mg PO DAILY [facility] Last Admin: 01/16/18 09:09 Dose: 325 mg Atorvastatin Calcium (Lipitor) 20 mg PO DIN [facility] Last Admin: 01/15/18 17:33 Dose: 20 mg Carvedilol (Coreg) 12.5 mg PO BID [facility] Last Admin: 01/16/18 09:09 Dose: 12.5 mg Dextrose (Dextrose 50% Inj) 0 ml IV STAT PRN; Protocol PRN Reason: Hypoglycemia Protocol Furosemide (Lasix) 40 mg IVP Q12 [facility] Last Admin: 01/16/18 09:09 Dose: 40 mg Dextrose (Dextrose 5% In Water 1000 Ml) 1,000 mls @ 0 mls/hr IV .Q0M PRN; Protocol; Per Protocol PRN Reason: Hypoglycemia Protocol Heparin Sodium/Sodium Chloride (Heparin 93048 Units/250ml 1/2 Normal Saline) 25 ,000 units in 250 mls @ 10.049 mls/hr IV .Q24H [facility]; 8.354 UNITS/KG/HR PRN Reason: Protocol Last Titration: 01/16/18 09:15 Dose: 8.35 units/kg/hr, 10.044 mls/hr Insulin Human Regular (Humulin R Low) 0 units SC ACHS [facility] PRN Reason: Protocol Last Admin: 01/16/18 11:52 Dose: Not Given Losartan Potassium (Cozaar) 100 mg PO DAILY [facility] Last Admin: 01/16/18 09:09 Dose: 100 mg Nitroglycerin (Nitrostat Sl Tab) 0.4 mg SL Q5M PRN PRN Reason: Pain, moderate (4-7) Pantoprazole Sodium (Protonix Ec Tab) 40 mg PO 0600 [facility] Last Admin: 01/16/18 07:15 Dose: Not Given Paroxetine HCl (Paxil) 10 mg PO DAILY [facility] Last Admin: 01/16/18 09:09 Dose: 10 mg Potassium Chloride (K-Dur 20 Meq Er Tab) 20 meq PO BRK [facility] Last Admin: 01/16/18 07:57 Dose: 20 meq - Labs Labs: 01/16/18 08:00 01/16/18 08:00 PT 11.5 SECONDS (9.4-12.5) 01/14/18 18:59 INR 1.01 01/14/18 18:59 APTT 47.3 Seconds (25.1-36.5) H 01/16/18 08:00 - Head Exam Head Exam: ATRAUMATIC, NORMAL INSPECTION - Eye Exam Eye Exam: EOMI Pupil Exam: PERRL - ENT Exam ENT Exam: Mucous Membranes Moist - Respiratory Exam Respiratory Exam: Clear to Ausculation Bilateral, NORMAL BREATHING PATTERN. absent: Respiratory Distress - Cardiovascular Exam Cardiovascular Exam: REGULAR RHYTHM, +S1, +S2, Murmur - GI/Abdominal Exam GI & Abdominal Exam: Normal Bowel Sounds. absent: Guarding, Rigid - Extremities Exam Extremities Exam: Normal Inspection. absent: Calf Tenderness - Back Exam Back Exam: NORMAL INSPECTION - Neurological Exam Neurological Exam: Alert, Awake, Oriented x3 - Skin Skin Exam: Normal Color, Warm Assessment and Plan - Assessment and Plan (Free Text) Assessment: This is a 42 year old male with PMH of CHF with reduced EF, aortic valve repair 2 years ago, [place], CAD, HT, depression and anxiety presenting to hospital for management of bradycardia and chest pain. Continuing with heparin drip and IV lasix. Awaiting records from [facility] due to extensive cardiac history. Will need ICD placement and cath per cardiology. Bradycardia r/o AZ -EKG on admission showed rate of 66, NSR with PVC and bigeminy. No STEMI -EKG yesterday showed sinus rhythm at rate of 68 with 1st degree AV block and LVH -troponins negative x3 -pulse 60-70 overnight -started coreg 12.5mg BID but will hold if SBP <100 and pulse <60 -continuing with heparin drip -heart healthy diet -will need ICD placement and cath per cardiology -cardiology on consult, Dr. Orona CHF with reduced EF -echo yesterday revealed EF of 21%, RVSP of 39, four chamber enlargement, global hypokinesis, moderate concentric LVH -obtaining medical records from [facility] - delayed due to holiday weekend -received aortic valce repair two years ago -continue lasix 40mg IV q12 -CT chest revealed no acute findings -CXR showed cardiomegaly, no other acute findings History of HTN: -losartan 100mg History of CAD: -Lipitor 20mg DIN History of DM: -hypoglycemic protocol -insulin human regular ACHS History of depression -currently on paroxetine 10mg PPX with heparin and protonix Patient seen and case discussed with attending, Dr. Alfaro <Amanda Alfaro - Last Filed: 01/16/18 18:32> Objective - Vital Signs/Intake and Output Vital Signs (last 24 hours): Temp Pulse Resp BP Pulse Ox 97.7 F 71 19 112/63 98 01/16/18 12:00 01/16/18 17:46 01/16/18 12:00 01/16/18 17:46 01/15/18 17:29 Intake and Output: 01/16/18 01/16/18 06:59 18:59 Intake Total 1412.5 140 Balance 1412.5 140 - Medications Medications: Current Medications Acetaminophen (Tylenol 325mg Tab) 650 mg PO Q4H PRN PRN Reason: Pain, Mild (1-3) Aspirin (Aspirin) 325 mg PO DAILY [facility] Last Admin: 01/16/18 09:09 Dose: 325 mg Atorvastatin Calcium (Lipitor) 20 mg PO DIN [facility] Last Admin: 01/16/18 17:46 Dose: 20 mg Carvedilol (Coreg) 12.5 mg PO BID [facility] Last Admin: 01/16/18 17:46 Dose: 12.5 mg Dextrose (Dextrose 50% Inj) 0 ml IV STAT PRN; Protocol PRN Reason: Hypoglycemia Protocol Furosemide (Lasix) 40 mg IVP Q12 [facility] Last Admin: 01/16/18 09:09 Dose: 40 mg Dextrose (Dextrose 5% In Water 1000 Ml) 1,000 mls @ 0 mls/hr IV .Q0M PRN; Protocol; Per Protocol PRN Reason: Hypoglycemia Protocol Heparin Sodium/Sodium Chloride (Heparin 17166 Units/250ml 1/2 Normal Saline) 25 ,000 units in 250 mls @ 10.049 mls/hr IV .Q24H [facility]; 8.354 UNITS/KG/HR PRN Reason: Protocol Last Titration: 01/16/18 16:15 Dose: 6.35 units/kg/hr, 7.639 mls/hr Insulin Human Regular (Humulin R Low) 0 units SC ACHS [facility] PRN Reason: Protocol Last Admin: 01/16/18 16:50 Dose: Not Given Losartan Potassium (Cozaar) 100 mg PO DAILY [facility] Last Admin: 01/16/18 09:09 Dose: 100 mg Nitroglycerin (Nitrostat Sl Tab) 0.4 mg SL Q5M PRN PRN Reason: Pain, moderate (4-7) Pantoprazole Sodium (Protonix Ec Tab) 40 mg PO 0600 [facility] Last Admin: 01/16/18 07:15 Dose: Not Given Paroxetine HCl (Paxil) 10 mg PO DAILY [facility] Last Admin: 01/16/18 09:09 Dose: 10 mg Potassium Chloride (K-Dur 20 Meq Er Tab) 20 meq PO BRK [facility] Last Admin: 01/16/18 07:57 Dose: 20 meq - Labs Labs: 01/16/18 08:00 01/16/18 08:00 PT 11.5 SECONDS (9.4-12.5) 01/14/18 18:59 INR 1.01 01/14/18 18:59 APTT 81.3 Seconds (25.1-36.5) H 01/16/18 15:14 Attending/Attestation - Attestation I have personally seen and examined this patient.: Yes I have fully participated in the care of the patient.: Yes I have reviewed all pertinent clinical information, including history, physical exam and plan: Yes Notes (Text): Patient seen and examined by me at 8:30AM with resident. Case including HPI, physical exam, and assessment and plan discussed with resident. Agree with above with following additions/corrections. Patient is a 42-year-old male with past medical history significant for coronary artery disease status post AZ, valve repair, type 2 diabetes, hypertension, depression, and anxiety that presented to the emergency room for low heart rate, chest pain, and back pain. Patient states he is feeling ok. Wants to go home. States he is still having chest pain and back pain. Pain is located on left side and radiates to back. Pain is constant but has been chronic. Denies any shortness of breath. No headaches or dizziness. No fevers or chills. No dysuria. No nausea, vomiting, or abdominal pain. Last bowel movement was 01/14/18. Patient states he wants to wait until he goes home to have bowel movement. Physical exam: General: Awake and alert lying in bed in no acute distress HEENT: Normocephalic atraumatic. Pupils equal reactive. Extraocular muscles intact. No scleral icterus. Oropharynx is pink and moist. No pharyngeal erythema or exudate appreciated. Neck is supple. Cardiovascular: Normal S1, S2. No murmurs, rubs, or gallops appreciated Pulmonary: Normal respiratory effort. No rhonchi, rales or wheezing appreciated. Gastrointestinal: Soft, nondistended. nontender. Positive bowel sounds all 4 quadrants, no guarding. Musculoskeletal: Normal range of motion all extremities. No calf tenderness. No edema appreciated. Central nervous system: AAOx3. CN2-12 grossly intact. Dermatologic: Skin warm and dry, positve well healed scar anterior chest wall. Assessment and plan: Patient is a 42-year-old male with past medical history significant for coronary artery disease status post AZ, valve repair, type 2 diabetes, hypertension, depression, and anxiety that presented to the emergency room for low heart rate, chest pain, and back pain. 1. Acute systolic CHF. 2D echo per on call shows EF of 21%, four-chamber enlargement, severely reduced LV systolic function with global hypokinesis, moderate concentric LVH, mild MR and TR. Continue with Lasix 40 mg IV every 12 hours. Continue with Coreg and Cozaar. Cardiology following, recommendations appreciated. Monitor ins and outs. Monitor daily weights. Continue heparin drip. 2. Bradycardia. Patient's heart rate in the 60s on monitor and storage bin tender. With bigeminy which may be falsely show up as bradycardia. 2-D echo as above. Cardiology consulted, recommendations appreciated. Continue to monitor on telemetry. 3. Chest pain/coronary artery disease. Pain is chronic. Continue with Coreg and losartan. Continue Lipitor. Patient is unable to tolerate Plavix secondary to rectal bleeding. Continue with aspirin. Continue heparin drip. Cardiology following, recommendations appreciated. 2-D echo as above. May need cardiac catheterization. Will need to get in touch with patient's on call at [facility]. Troponins within normal limits. CTA chest per radiologist showed no acute pathology identified. 4. Hypertension. Continue Coreg and losartan. Patient was on valsartan at home. Continue Lasix. 5. Type 2 diabetes. Continue with insulin sliding scale. Continue to monitor Accu-Cheks. 6. Anxiety and depression. Continue home Paxil. 7. GI/DVT prophylaxis. Protonix and heparin drip. Case was discussed in detail with the patient and cardiology Dr. Loomis regarding current diagnosis and treatment plan.
--- NOTE | 2018-01-16 18:42 | PN ---
Copied To: Jaskaran Loomis MD Attending MD: Jaskaran Loomis MD DATE: 01/16/2018 SUBJECTIVE: The patient is comfortable. He has adequate diuresis as intravenous Lasix. He denies any chest pain. PHYSICAL EXAMINATION: VITAL SIGNS: Blood pressure 118/71, heart rate 68, temperature 97.4, respirations 20. HEENT: Normocephalic. CHEST: Bibasilar rhonchi. HEART: S1 and S2 regular. EXTREMITIES: A 1+ pitting edema. LABORATORY DATA: Hemoglobin and hematocrit 14.7 and 41.4, white count and platelet count are within normal limit. Today's SMA-7 is within normal limits except for glucose of 115. Echocardiographic study official report: Four-chamber enlargement, severely reduced left ventricle with global hypokinesis, moderate concentric LVH, mild MR and TR. ASSESSMENT: 1. Biventricular failure. 2. Chest pain, myocardial infarction is ruled out. 3. Status post aortic valve repair 2 years ago. 5. History of anxiety. RECOMMENDATIONS: Case was discussed with Dr. Alfaro and the medical operations supervisor. The patient needs to be maintained on therapeutic intravenous heparin. Continue aspirin 325 mg once a day, Coreg 12.5 mg twice a day, IV Lasix 40 mg intravenously twice a day, K-Dur 20 mEq once a day. Continue Cozaar 12.5 mg twice a day. He did request the open-heart surgery report from [facility] to be faxed to us; however, given the holiday situation, this may not happen until Wednesday, also the case needs to be discussed with the patient's doctor of osteopathy at [facility] as the patient should be considered for cardiac catheterization as well as electrophysiology evaluation for possible ICD placement or a LifeVest placement. If the patient insists on leaving, he needs to sign against medical advice. Jaskaran Loomis MD
[2018-01-17 03:20] VITALS: O2SAT 98
[2018-01-17] MEDS: Pantoprazole 40 mg EC Tab PO SCH (05:17)
[2018-01-17] MEDS: Heparin25000 units/250ml 1/2NS 25,000 UNITS/250 ML BAG IV SCH (06:48)
[2018-01-17 07:26] LABS: EOS # 0.2 (0.0-0.7); EOS % 2.8 % (1.5-5.0); GRAN # 2.68 (1.4-6.5); GRAN % 46.8 % (50.0-68.0); HEMOGLOBIN 14.2 g/dL (14.0-18.0); LYMPH # 2.3 (1.2-3.4); LYMPH % 39.8 % (22.0-35.0); MEAN CELL VOLUME 79.3 fl (80.0-105.0); MEAN CORPUSCULAR HEMOGLOBIN 27.3 pg (25.0-35.0); MEAN CORPUSCULAR HGB CONC 34.4 g/dl (31.0-37.0); MONO # 0.6 (0.1-0.6); MONO % 10.6 % (1.0-6.0); RBC 5.21 10^6/uL (3.5-6.1); WHITE BLOOD COUNT 5.7 10^3/ul (4.5-11.0)
[2018-01-17] MEDS: Potassium Chloride 20 mEq ER Tab PO SCH (07:56)
[2018-01-17 08:01] LABS: ALB/GLOB RATIO 1.5 (1.1-1.8); ALBUMIN 4.4 g/dL (3.0-4.8); ALT/SGPT 61 U/L (7-56); AST/SGOT 38 U/L (17-59); BLOOD UREA NITROGEN 17 mg/dL (7-21); CALCIUM 9.4 mg/dL (8.4-10.5); GFR NON-AFRICAN AMERICAN > 60
[2018-01-17] MEDS: Insulin Reg-LOW-Coverage SC SCH ×3 (08:20→17:00)
[2018-01-17] MEDS: Enoxaparin 80 mg Syringe SC SCH (12:02)
--- NOTE | 2018-01-17 12:35 | PN ---
Copied To: Jaskaran Loomis MD Attending MD: Jaskaran Loomis MD DATE: 01/17/2018 FOLLOWUP SUBJECTIVE: The patient is chest pain free. He has adequate diuresis. No shortness of breath. PHYSICAL EXAMINATION: VITAL SIGNS: Blood pressure 130/60, heart rate 84, temperature 97.5, respirations 20. HEENT: Normocephalic. CHEST: Clear. HEART: S1 and S2 regular. EXTREMITIES: No edema. LABORATORY DATA: Hemoglobin and hematocrit 14.2 and 41.3. White count and platelet count are within normal limits. Today's PTT is 59.5, which is therapeutic for intravenous heparin. SMA-7 is within normal limits except for glucose of 116. ASSESSMENT: 1. Chest pain, myocardial infarction is ruled out. 2. Biventricular failure. 3. Status post aortic valve repair 2 years ago. 4. History of anxiety. RECOMMENDATIONS: Continue aspirin 325 mg once a day, Coreg 12.5 mg once a day, Cozaar 100 mg once a day. Discontinue intravenous heparin and start subcutaneous Lovenox at 60 mg twice a day. The patient was advised to wait until further records are obtained from [facility] and the case will be discussed with his brush finisher if he wants to receive him at [facility] for cardiac catheterization procedure and possible ICD or LifeVest placement. However, the patient wants to leave early tomorrow for some errands that he has to take care of. The case was discussed with Dr. Gamez. Jaskaran Loomis MD
--- NOTE | 2018-01-17 14:11 | CP.PCM.PN ---
<Marie Snyder - Last Filed: 01/17/18 14:26> Subjective - Date & Time of Evaluation Date of Evaluation: 01/17/18 Time of Evaluation: 14:06 - Subjective Subjective: Marie Snyder, PGY-1 Progress Note for Hospitalist Service Patient seen and examined at bedside this morning. No acute events overnight. No new complaints offered today. May need cardiac cath and ACD or lifevest placement per cardiology. Awaiting records from [facility] from previous cardiac workup. Objective - Vital Signs/Intake and Output Vital Signs (last 24 hours): Temp Pulse Resp BP Pulse Ox 98 F 94 H 21 112/67 98 01/17/18 12:00 01/17/18 12:00 01/17/18 12:00 01/17/18 12:00 01/17/18 06:00 Intake and Output: 01/17/18 01/17/18 06:59 18:59 Intake Total 738 Balance 738 - Medications Medications: Current Medications Acetaminophen (Tylenol 325mg Tab) 650 mg PO Q4H PRN PRN Reason: Pain, Mild (1-3) Aspirin (Aspirin) 325 mg PO DAILY [facility] Last Admin: 01/17/18 09:20 Dose: 325 mg Atorvastatin Calcium (Lipitor) 20 mg PO DIN [facility] Last Admin: 01/16/18 17:46 Dose: 20 mg Carvedilol (Coreg) 12.5 mg PO BID [facility] Last Admin: 01/17/18 09:20 Dose: 12.5 mg Dextrose (Dextrose 50% Inj) 0 ml IV STAT PRN; Protocol PRN Reason: Hypoglycemia Protocol Enoxaparin Sodium (Lovenox) 70 mg SC Q12H [facility] PRN Reason: Protocol Last Admin: 01/17/18 12:02 Dose: 70 mg Furosemide (Lasix) 40 mg IVP Q12 [facility] Last Admin: 01/17/18 09:20 Dose: 40 mg Dextrose (Dextrose 5% In Water 1000 Ml) 1,000 mls @ 0 mls/hr IV .Q0M PRN; Protocol; Per Protocol PRN Reason: Hypoglycemia Protocol Insulin Human Regular (Humulin R Low) 0 units SC ACHS [facility] PRN Reason: Protocol Last Admin: 01/17/18 11:30 Dose: Not Given Losartan Potassium (Cozaar) 100 mg PO DAILY [facility] Last Admin: 01/17/18 09:20 Dose: 100 mg Nitroglycerin (Nitrostat Sl Tab) 0.4 mg SL Q5M PRN PRN Reason: Pain, moderate (4-7) Pantoprazole Sodium (Protonix Ec Tab) 40 mg PO 0600 [facility] Last Admin: 01/17/18 05:17 Dose: 40 mg Paroxetine HCl (Paxil) 10 mg PO DAILY [facility] Last Admin: 01/17/18 09:20 Dose: 10 mg Potassium Chloride (K-Dur 20 Meq Er Tab) 20 meq PO BRK [facility] Last Admin: 01/17/18 07:56 Dose: 20 meq - Labs Labs: 01/17/18 06:45 01/17/18 06:45 PT 11.5 SECONDS (9.4-12.5) 01/14/18 18:59 INR 1.01 01/14/18 18:59 APTT 65.9 Seconds (25.1-36.5) H 01/17/18 13:15 - Constitutional Appears: No Acute Distress - Head Exam Head Exam: ATRAUMATIC, NORMAL INSPECTION - Eye Exam Eye Exam: EOMI Pupil Exam: PERRL - ENT Exam ENT Exam: Mucous Membranes Moist - Respiratory Exam Respiratory Exam: Clear to Ausculation Bilateral, NORMAL BREATHING PATTERN. absent: Respiratory Distress - Cardiovascular Exam Cardiovascular Exam: REGULAR RHYTHM, +S1, +S2, Murmur - GI/Abdominal Exam GI & Abdominal Exam: Normal Bowel Sounds. absent: Guarding, Rigid - Extremities Exam Extremities Exam: Normal Inspection. absent: Calf Tenderness - Neurological Exam Neurological Exam: Alert, Awake, Oriented x3 - Skin Skin Exam: Normal Color, Warm Assessment and Plan - Assessment and Plan (Free Text) Assessment: This is a 42 year old male with PMH of CHF with reduced EF, aortic valve repair 2 years ago, [place], CAD, HT, depression and anxiety presenting to hospital for management of bradycardia and chest pain. Continuing with heparin drip and IV lasix. Awaiting records from [facility] due to extensive cardiac history; delayed due to holiday weekend. May need placement of ICD or lifevest placement and cath per cardiology. Patient state he has insurance meeting he has to attend tomorrow morning. Explained to patient that options include AMA due to ongoing cardiac workup. Bradycardia r/o ND -EKG on admission 01/14 showed rate of 66, NSR with PVC and bigeminy. No STEMI -EKG on 01/15 showed sinus rhythm at rate of 68 with 1st degree AV block and LVH -troponins negative x3 -pulse 50-80 overnight with low of 52 -continuing coreg 12.5mg BID but will hold if SBP <100 and pulse <60 -continuing with heparin drip -heart healthy diet -may need ICD or lifevest placement and cath per cardiology -monitoring on tele -cardiology on consult, Dr. Orona CHF with reduced EF -obtaining medical records from [facility] - delayed due to holiday weekend. Will send request tomorrow morning -received aortic valce repair two years ago -continue lasix 40mg IV q12 -echo 01/15 revealed EF of 21%, RVSP of 39, four chamber enlargement, global hypokinesis, moderate concentric LVH -01/14 CT chest revealed no acute findings -01/14 CXR showed cardiomegaly, no other acute findings History of HTN: -losartan 100mg History of CAD: -Lipitor 20mg DIN History of DM: -hypoglycemic protocol -insulin human regular ACHS History of depression -currently on paroxetine 10mg PPX with heparin and protonix Patient seen and case discussed with attending, Dr. Gamez <Jessika Gamez - Last Filed: 01/17/18 17:56> Objective - Vital Signs/Intake and Output Vital Signs (last 24 hours): Temp Pulse Resp BP Pulse Ox 98 F 67 21 112/67 98 01/17/18 12:00 01/17/18 14:00 01/17/18 12:00 01/17/18 12:00 01/17/18 06:00 Intake and Output: 01/17/18 01/17/18 06:59 18:59 Intake Total 738 Balance 738 - Medications Medications: Current Medications Acetaminophen (Tylenol 325mg Tab) 650 mg PO Q4H PRN PRN Reason: Pain, Mild (1-3) Aspirin (Aspirin) 325 mg PO DAILY [facility] Last Admin: 01/17/18 09:20 Dose: 325 mg Atorvastatin Calcium (Lipitor) 20 mg PO DIN [facility] Last Admin: 01/16/18 17:46 Dose: 20 mg Carvedilol (Coreg) 12.5 mg PO BID [facility] Last Admin: 01/17/18 09:20 Dose: 12.5 mg Dextrose (Dextrose 50% Inj) 0 ml IV STAT PRN; Protocol PRN Reason: Hypoglycemia Protocol Enoxaparin Sodium (Lovenox) 70 mg SC Q12H [facility] PRN Reason: Protocol Last Admin: 01/17/18 12:02 Dose: 70 mg Furosemide (Lasix) 40 mg IVP Q12 [facility] Last Admin: 01/17/18 09:20 Dose: 40 mg Dextrose (Dextrose 5% In Water 1000 Ml) 1,000 mls @ 0 mls/hr IV .Q0M PRN; Protocol; Per Protocol PRN Reason: Hypoglycemia Protocol Insulin Human Regular (Humulin R Low) 0 units SC ACHS [facility] PRN Reason: Protocol Last Admin: 01/17/18 17:00 Dose: Not Given Losartan Potassium (Cozaar) 100 mg PO DAILY [facility] Last Admin: 01/17/18 09:20 Dose: 100 mg Nitroglycerin (Nitrostat Sl Tab) 0.4 mg SL Q5M PRN PRN Reason: Pain, moderate (4-7) Pantoprazole Sodium (Protonix Ec Tab) 40 mg PO 0600 [facility] Last Admin: 01/17/18 05:17 Dose: 40 mg Paroxetine HCl (Paxil) 10 mg PO DAILY [facility] Last Admin: 01/17/18 09:20 Dose: 10 mg Potassium Chloride (K-Dur 20 Meq Er Tab) 20 meq PO BRK [facility] Last Admin: 01/17/18 07:56 Dose: 20 meq - Labs Labs: 01/17/18 06:45 01/17/18 06:45 PT 11.5 SECONDS (9.4-12.5) 01/14/18 18:59 INR 1.01 01/14/18 18:59 APTT 65.9 Seconds (25.1-36.5) H 01/17/18 13:15 Attending/Attestation - Attestation I have personally seen and examined this patient.: Yes I have fully participated in the care of the patient.: Yes I have reviewed all pertinent clinical information, including history, physical exam and plan: Yes Notes (Text): 01/17/18 17:52 Attending note; Patient seen and examined with resident. Patient is alert and awake. Denies any chest pain. Complaining of exertional dyspnea. Patient is a 42-year-old male with past medical history significant for coronary artery disease status post ND,aortic valve repair, type 2 diabetes, hypertension, depression, and anxiety that presented to the emergency room for low heart rate, chest pain. 1. Acute systolic CHF. 2D echo per business office assistant shows EF of 21%, four-chamber enlargement, severely reduced LV systolic function with global hypokinesis, moderate concentric LVH, mild MR and TR. Continue with Lasix 40 mg IV every 12 hours. Continue with Coreg and Cozaar. Clinically improved. Increased urinary output. No leg swelling. Cardiology evaluation appreciated. Monitor daily weights. heparin drip stopped. Started on subcutaneous Lovenox. 2. Bradycardia. Patient's heart rate in the 60s on equipment monitor phototypesetting. 3. Chest pain/coronary artery disease. Pain is chronic since the open heart surgery as per patient. Continue with Coreg and losartan. Continue Lipitor. . Continue with aspirin. May need cardiac catheterization. Will try to get records from [facility]. Troponins within normal limits. CTA chest per radiologist showed no acute pathology identified. 4. Hypertension. Continue Coreg and losartan. Continue Lasix. 5. Type 2 diabetes. Continue with insulin sliding scale. Continue to monitor Accu-Cheks. 6. Anxiety and depression. Continue home Paxil. 7. GI/DVT prophylaxis. Protonix and Lovenox. Case was discussed in detail with the patient and cardiology Dr. Loomis regarding current diagnosis and treatment plan.
[2018-01-18 01:36] VITALS: RESP 18
[2018-01-18] MEDS: Enoxaparin 80 mg Syringe SC SCH ×2 (04:08→11:59)
[2018-01-18] MEDS: Insulin Reg-LOW-Coverage SC SCH ×3 (04:10→11:54)
[2018-01-18] MEDS: Pantoprazole 40 mg EC Tab PO SCH (05:59)
[2018-01-18 06:57] LABS: BASO # 0.01 K/mm3 (0.0-2.0); BASO % 0.2 % (0.0-3.0); EOS # 0.2 (0.0-0.7); EOS % 2.7 % (1.5-5.0); GRAN # 3.01 (1.4-6.5); GRAN % 53.5 % (50.0-68.0); HEMOGLOBIN 14.7 g/dL (14.0-18.0); LYMPH # 1.9 (1.2-3.4); LYMPH % 34.3 % (22.0-35.0); MEAN CELL VOLUME 79.2 fl (80.0-105.0); MEAN CORPUSCULAR HEMOGLOBIN 27.5 pg (25.0-35.0); MEAN CORPUSCULAR HGB CONC 34.8 g/dl (31.0-37.0); MEAN PLATELET VOLUME 9.1 fl (7.0-11.0); MONO # 0.5 (0.1-0.6); MONO % 9.3 % (1.0-6.0); RBC 5.34 10^6/uL (3.5-6.1); RED CELL DISTRIBUTION WIDTH 14.2 % (11.5-14.5); WHITE BLOOD COUNT 5.6 10^3/ul (4.5-11.0)
[2018-01-18 07:40] LABS: ALB/GLOB RATIO 1.3 (1.1-1.8); ALBUMIN 4.5 g/dL (3.0-4.8); ALT/SGPT 100 U/L (7-56); AST/SGOT 63 U/L (17-59); BLOOD UREA NITROGEN 20 mg/dL (7-21); CALCIUM 9.6 mg/dL (8.4-10.5); GFR NON-AFRICAN AMERICAN > 60
[2018-01-18] MEDS: Potassium Chloride 20 mEq ER Tab PO SCH (08:23)
[2018-01-18 12:04] VITALS: BP 126/76; TEMP 98.2
--- NOTE | 2018-01-18 13:45 | CP.PCM.PN ---
Subjective - Date & Time of Evaluation Date of Evaluation: 01/18/18 Time of Evaluation: 13:37 Objective - Vital Signs/Intake and Output Vital Signs (last 24 hours): Temp Pulse Resp BP Pulse Ox 98.2 F 76 18 126/76 98 01/18/18 12:00 01/18/18 12:00 01/18/18 12:00 01/18/18 12:00 01/17/18 06:00 Intake and Output: 01/18/18 01/18/18 06:59 18:59 Intake Total 720 Output Total 600 Balance 120 - Medications Medications: Current Medications Aspirin (Aspirin) 325 mg PO DAILY [facility] Last Admin: 01/18/18 09:45 Dose: 325 mg Atorvastatin Calcium (Lipitor) 20 mg PO DIN [facility] Last Admin: 01/17/18 18:07 Dose: 20 mg Carvedilol (Coreg) 12.5 mg PO BID [facility] Last Admin: 01/18/18 09:45 Dose: 12.5 mg Dextrose (Dextrose 50% Inj) 0 ml IV STAT PRN; Protocol PRN Reason: Hypoglycemia Protocol Enoxaparin Sodium (Lovenox) 70 mg SC Q12H [facility] PRN Reason: Protocol Last Admin: 01/18/18 11:59 Dose: 70 mg Furosemide (Lasix) 40 mg IVP Q12 [facility] Last Admin: 01/18/18 09:44 Dose: 40 mg Dextrose (Dextrose 5% In Water 1000 Ml) 1,000 mls @ 0 mls/hr IV .Q0M PRN; Protocol; Per Protocol PRN Reason: Hypoglycemia Protocol Insulin Human Regular (Humulin R Low) 0 units SC ACHS [facility] PRN Reason: Protocol Last Admin: 01/18/18 11:54 Dose: Not Given Losartan Potassium (Cozaar) 100 mg PO DAILY [facility] Last Admin: 01/18/18 09:45 Dose: 100 mg Nitroglycerin (Nitrostat Sl Tab) 0.4 mg SL Q5M PRN PRN Reason: Pain, moderate (4-7) Last Admin: 01/17/18 20:19 Dose: 0.4 mg Pantoprazole Sodium (Protonix Ec Tab) 40 mg PO 0600 [facility] Last Admin: 01/18/18 05:59 Dose: 40 mg Paroxetine HCl (Paxil) 10 mg PO DAILY [facility] Last Admin: 01/18/18 09:45 Dose: 10 mg Potassium Chloride (K-Dur 20 Meq Er Tab) 20 meq PO BRK [facility] Last Admin: 01/18/18 08:23 Dose: 20 meq - Labs Labs: 01/18/18 05:30 01/18/18 05:30 PT 11.5 SECONDS (9.4-12.5) 01/14/18 18:59 INR 1.01 01/14/18 18:59 APTT 65.9 Seconds (25.1-36.5) H 01/17/18 13:15
--- NOTE | 2018-01-18 13:59 | PN ---
Copied To: Richmond Bland MD Attending MD: Richmond Bland MD DATE: 01/18/2018 CARDIOLOGY FOLLOWUP SUBJECTIVE: The patient is chest pain free. He feels weak. OBJECTIVE: VITAL SIGNS: Blood pressure is 126/76, heart rate is in the 70s. NECK: Negative JVD. LUNGS: Without rales. HEART: Reveal S1, S2. EXTREMITIES: Without edema. LABORATORY DATA: BUN and creatinine are unremarkable. Glucose is 117, hemoglobin is 14.7. Echocardiogram reveals an ejection fraction in the 20s. IMPRESSION: 1. Dilated cardiomyopathy. 2. According to the patient, the patient states his heart has been weak for a long time and has been told this is secondary to his heart surgery. 3. History of aortic valve surgery. 4. Weakness. Given these findings, from a cardiac perspective, the patient can be discharged. We will arrange for an outpatient stress test next week. In addition, we will try to obtain his records from [facility]. The patient has requested that the rest of his workup be done as an outpatient given his various issues in his private life he needs to take care of. Richmond Bland MD
[2018-01-18 14:09] VITALS: PULSE 70
--- NOTE | 2018-01-18 17:26 | CP.PCM.DIS ---
<Marie Snyder - Last Filed: 01/18/18 17:22> Provider - Provider Date of Admission: 01/14/18 20:35 Attending physician: Jessika Gamez MD Primary care physician: NO PRIMARY CARE PROVIDER Consults: Cardio, Dr. Camarillo Time Spent in preparation of Discharge (in minutes): 35 Hospital Course - Lab Results Lab Results: Most Recent Lab Values WBC 5.6 10^3/ul (4.5-11.0) 01/18/18 05:30 RBC 5.34 10^6/uL (3.5-6.1) 01/18/18 05:30 Hgb 14.7 g/dL (14.0-18.0) 01/18/18 05:30 Hct 42.3 % (42.0-52.0) 01/18/18 05:30 MCV 79.2 fl (80.0-105.0) L 01/18/18 05:30 MCH 27.5 pg (25.0-35.0) 01/18/18 05:30 MCHC 34.8 g/dl (31.0-37.0) 01/18/18 05:30 RDW 14.2 % (11.5-14.5) 01/18/18 05:30 Plt Count 282 10^3/uL (120.0-450.0) 01/18/18 05:30 MPV 9.1 fl (7.0-11.0) 01/18/18 05:30 Gran % 53.5 % (50.0-68.0) 01/18/18 05:30 Lymph % (Auto) 34.3 % (22.0-35.0) 01/18/18 05:30 [place] % (Auto) 9.3 % (1.0-6.0) H 01/18/18 05:30 Eos % (Auto) 2.7 % (1.5-5.0) 01/18/18 05:30 Baso % (Auto) 0.2 % (0.0-3.0) 01/18/18 05:30 Gran # 3.01 (1.4-6.5) 01/18/18 05:30 Lymph # (Auto) 1.9 (1.2-3.4) 01/18/18 05:30 [place] # (Auto) 0.5 (0.1-0.6) 01/18/18 05:30 Eos # (Auto) 0.2 (0.0-0.7) 01/18/18 05:30 Baso # (Auto) 0.01 K/mm3 (0.0-2.0) 01/18/18 05:30 PT 11.5 SECONDS (9.4-12.5) 01/14/18 18:59 INR 1.01 01/14/18 18:59 APTT 65.9 Seconds (25.1-36.5) H 01/17/18 13:15 Sodium 140 mmol/L (132-148) 01/18/18 05:30 Potassium 3.8 mmol/L (3.6-5.0) 01/18/18 05:30 Chloride 101 mmol/L (98-107) 01/18/18 05:30 Carbon Dioxide 27 mmol/L (21-33) 01/18/18 05:30 Anion Gap 16 (10-20) 01/18/18 05:30 BUN 20 mg/dL (7-21) 01/18/18 05:30 Creatinine 1.2 mg/dl (0.8-1.5) 01/18/18 05:30 Est GFR ( Amer) > 60 01/18/18 05:30 Est GFR (Non-Af Amer) > 60 01/18/18 05:30 POC Glucose (mg/dL) 130 mg/dL (65-110) H 01/18/18 11:32 Random Glucose 117 mg/dL (70-110) H 01/18/18 05:30 Calcium 9.6 mg/dL (8.4-10.5) 01/18/18 05:30 Magnesium 1.8 mg/dL (1.7-2.2) 01/14/18 18:59 Total Bilirubin 1.0 mg/dL (0.2-1.3) 01/18/18 05:30 AST 63 U/L (17-59) H D 01/18/18 05:30 ALT 100 U/L (7-56) H 01/18/18 05:30 Alkaline Phosphatase 53 U/L (38-126) 01/18/18 05:30 Lactate Dehydrogenase 478 U/L (333-699) 01/14/18 18:59 Total Creatine Kinase 165 U/L (35-230) 01/14/18 18:59 Troponin I < 0.01 ng/mL 01/15/18 14:50 NT-Pro-B Natriuret Pep 117 pg/mL (0-450) 01/14/18 18:59 Total Protein 7.9 g/dL (5.8-8.3) 01/18/18 05:30 Albumin 4.5 g/dL (3.0-4.8) 01/18/18 05:30 Globulin 3.4 gm/dL 01/18/18 05:30 Albumin/Globulin Ratio 1.3 (1.1-1.8) 01/18/18 05:30 - Hospital Course Hospital Course: 42 year old male [facility] of ID, CAD, DM, s/p sternotomy presenting to the ED for chest pain. Per EMS, patient was at his PCP office when he began having left sided chest and back pain. He was noted to have a HR of 33 and blood pressure of 180s systolic. The patient's HR went to 43 without medical intervention and was given 325mg of aspirin en route to the hospital. Per the patient, he had been experiencing intermittent left sided chest pain for the past several days and was concerned this episode was similar to his previous ID in 2007. The patient denies taking any medication for the pain and reports inconsistent medication compliance in general. He denies dizziness, SOB, syncopal episodes, nausea, emesis, fevers, chills, weakness, jaw pain or numbness/ tingling. 01/14/2018 EKG: Sinus rhythm with frequent premature ventricular complexes in a pattern of bigeminy. Right bundle branch block. Moderate voltage criteria for LVH, may be normal variant. Abnormal ECG. Chest X-Ray: no focal consolidation or pleural effusion CT Angiography: No acute pathology identified. 01/15/2018 Echocardiography: Four chamber enlargement. Severely reduced LV systolic function with global hypokinesis. Moderate concentric LVH. Mild MR and TR. Repeat EKG: Sinus Rhythm with frequent premature ventricular complexes in a pattern of bigeminy. Right bundle branch block. Voltage criteria for LVH. Abnormal ECG. Cardiology Consult: Dr. Loomis recommends continuation of IV heparin, Cozar 12.5 mg twice a day, aspirin 325 mg once a day, Coreg 12.5 mg twice a day , Lasix 40 mg IV twice a day with K-Dur 20 mEq orally once a day. Still attempting to obtain patient records from [facility]. Patient should be considered for cardiac cath as well as EP evaluation for possible ICD placement or a LifeVest Placement. If patient insists on leaving needs to sign AMA. 01/17/2018 Cardiology Consult: Dr. Loomis discontinued IV heparin and started subcutaneous Lovenox at 60 mg twice a day. Case will be discussed with patients nurse discharge at [facility] to see if he can receive cardiac catheterization procedure and possible ICD and life vest placement there. 01/18/2018 Dr. Camarillo Cardiology Consult: From a cardiac perspective patient can be discharged. Patient will be scheduled for an outpatient stress test next week. In addition, there will be an attempt to obtain patients records from [facility]. The patient has requested that the rest of his workup be done outpatient due to various issues in his private life he needs to take care of. Discharge Exam - Head Exam Head Exam: ATRAUMATIC, NORMAL INSPECTION - Eye Exam Eye Exam: EOMI Pupil Exam: PERRL - ENT Exam ENT Exam: Mucous Membranes Moist - Respiratory Exam Respiratory Exam: Clear to PA & Lateral. absent: Respiratory Distress - Cardiovascular Exam Cardiovascular Exam: REGULAR RHYTHM, +S1, +S2, Systolic Murmur - GI/Abdominal Exam GI & Abdominal Exam: Normal Bowel Sounds. absent: Distended, Firm - Extremities Exam Extremities exam: normal inspection, pedal pulses present - Neurological Exam Neurological exam: Alert, Oriented x3 - Skin Skin Exam: Normal Color, Warm Discharge Plan - Discharge Medications Prescriptions: Furosemide [Lasix] 40 mg PO DAILY #15 tablet - Follow Up Plan Condition: GOOD Disposition: HOME/ ROUTINE Instructions: Heart Healthy Diet, Quitting Smoking for Older Adults, Heart Failure, Adult (DC), Chest Pain (DC), Troponin Test, Chest Pain (DC), Chest Pain (GEN) Additional Instructions: Please follow up with Stress test on Wednesday01/25/2018 at 6 am Follow up with nurse discharge within 2 weeks Follow up with primary medical doctor in 3-5 days Referrals: PCP,NO [Primary Care Provider] - <Jessika Gamez - Last Filed: 01/19/18 14:34> Provider - Provider Date of Admission: 01/14/18 20:35 Attending physician: Jessika Gamez MD Primary care physician: NO PRIMARY CARE PROVIDER Hospital Course - Lab Results Lab Results: Most Recent Lab Values WBC 5.6 10^3/ul (4.5-11.0) 01/18/18 05:30 RBC 5.34 10^6/uL (3.5-6.1) 01/18/18 05:30 Hgb 14.7 g/dL (14.0-18.0) 01/18/18 05:30 Hct 42.3 % (42.0-52.0) 01/18/18 05:30 MCV 79.2 fl (80.0-105.0) L 01/18/18 05:30 MCH 27.5 pg (25.0-35.0) 01/18/18 05:30 MCHC 34.8 g/dl (31.0-37.0) 01/18/18 05:30 RDW 14.2 % (11.5-14.5) 01/18/18 05:30 Plt Count 282 10^3/uL (120.0-450.0) 01/18/18 05:30 MPV 9.1 fl (7.0-11.0) 01/18/18 05:30 Gran % 53.5 % (50.0-68.0) 01/18/18 05:30 Lymph % (Auto) 34.3 % (22.0-35.0) 01/18/18 05:30 [place] % (Auto) 9.3 % (1.0-6.0) H 01/18/18 05:30 Eos % (Auto) 2.7 % (1.5-5.0) 01/18/18 05:30 Baso % (Auto) 0.2 % (0.0-3.0) 01/18/18 05:30 Gran # 3.01 (1.4-6.5) 01/18/18 05:30 Lymph # (Auto) 1.9 (1.2-3.4) 01/18/18 05:30 [place] # (Auto) 0.5 (0.1-0.6) 01/18/18 05:30 Eos # (Auto) 0.2 (0.0-0.7) 01/18/18 05:30 Baso # (Auto) 0.01 K/mm3 (0.0-2.0) 01/18/18 05:30 PT 11.5 SECONDS (9.4-12.5) 01/14/18 18:59 INR 1.01 01/14/18 18:59 APTT 65.9 Seconds (25.1-36.5) H 01/17/18 13:15 Sodium 140 mmol/L (132-148) 01/18/18 05:30 Potassium 3.8 mmol/L (3.6-5.0) 01/18/18 05:30 Chloride 101 mmol/L (98-107) 01/18/18 05:30 Carbon Dioxide 27 mmol/L (21-33) 01/18/18 05:30 Anion Gap 16 (10-20) 01/18/18 05:30 BUN 20 mg/dL (7-21) 01/18/18 05:30 Creatinine 1.2 mg/dl (0.8-1.5) 01/18/18 05:30 Est GFR ( Amer) > 60 01/18/18 05:30 Est GFR (Non-Af Amer) > 60 01/18/18 05:30 POC Glucose (mg/dL) 130 mg/dL (65-110) H 01/18/18 11:32 Random Glucose 117 mg/dL (70-110) H 01/18/18 05:30 Calcium 9.6 mg/dL (8.4-10.5) 01/18/18 05:30 Magnesium 1.8 mg/dL (1.7-2.2) 01/14/18 18:59 Total Bilirubin 1.0 mg/dL (0.2-1.3) 01/18/18 05:30 AST 63 U/L (17-59) H D 01/18/18 05:30 ALT 100 U/L (7-56) H 01/18/18 05:30 Alkaline Phosphatase 53 U/L (38-126) 01/18/18 05:30 Lactate Dehydrogenase 478 U/L (333-699) 01/14/18 18:59 Total Creatine Kinase 165 U/L (35-230) 01/14/18 18:59 Troponin I < 0.01 ng/mL 01/15/18 14:50 NT-Pro-B Natriuret Pep 117 pg/mL (0-450) 01/14/18 18:59 Total Protein 7.9 g/dL (5.8-8.3) 01/18/18 05:30 Albumin 4.5 g/dL (3.0-4.8) 01/18/18 05:30 Globulin 3.4 gm/dL 01/18/18 05:30 Albumin/Globulin Ratio 1.3 (1.1-1.8) 01/18/18 05:30 Attending/Attestation - Attestation I have personally seen and examined this patient.: Yes I have fully participated in the care of the patient.: Yes I have reviewed all pertinent clinical information, including history, physical exam and plan: Yes Notes (Text): 01/19/18 14:30 Attending note; Patient seen and examined with resident. Patient is alert and awake. Denies any chest pain. denies any shortness of breath. denies any abdominal pain. tolerating diet well. Ambulating fine. Patient is a 42-year-old male with past medical history significant for coronary artery disease status post ID,aortic valve repair, type 2 diabetes, hypertension, depression, and anxiety that presented to the emergency room for low heart rate, chest pain. 1. Acute systolic CHF. 2D echo per nurse discharge shows EF of 21%, four-chamber enlargement, severely reduced LV systolic function with global hypokinesis, moderate concentric LVH, mild MR and TR. Continue with Lasix 40 mg IV every 12 hours. Continue with Coreg and Cozaar. Clinically improved. Increased urinary output. No leg swelling. Cardiology evaluation appreciated. outpatient stress test arranged by Dr. camarillo. Condition can be discharged home per cardiology. 2. Bradycardia. resolved.Patient's heart rate in the 60s on phototypesetting equipment monitor. 3. dilated cardiomyopathy;. Pain is chronic since the open heart surgery as per patient. Continue with Coreg ,losartan, Lipitor and aspirin. 4. Hypertension. Continue Coreg and losartan. Continue Lasix. 5. Type 2 diabetes. continue metformin. 6. Anxiety and depression. Continue home Paxil. patient will follow up with PMD dr. garnett. follow-up with cardiology Dr. Camarillo for stress test on 01/25/18. 01/19/18 14:33
== END 2018-01-18 16:24 | disposition home or self-care (01) | DRG 127 ==
LOC: ED 18:05 → ERH 20:35 → 2RSO 22:43
PROVIDERS: ADMIT Hospitalist; ATTEND Internal Medicine
DX: I11.0 Hypertensive heart disease with heart failure (principal); I42.0 Dilated cardiomyopathy; K62.5 Hemorrhage of anus and rectum; I50.21 Acute systolic (congestive) heart failure; I25.10 Atherosclerotic heart disease of native coronary artery without angina pectoris; I50.82 Biventricular heart failure; E11.9 Type 2 diabetes mellitus without complications; F41.9 Anxiety disorder, unspecified; F32.89 Other specified depressive episodes; I25.2 Old myocardial infarction; I44.0 Atrioventricular block, first degree; I45.10 Unspecified right bundle-branch block; Z79.4 Long term (current) use of insulin; Z79.82 Long term (current) use of aspirin; Z79.899 Other long term (current) drug therapy; Z95.2 Presence of prosthetic heart valve; E66.01 Morbid (severe) obesity due to excess calories; Z68.33 Body mass index [BMI] 33.0-33.9, adult

== ENCOUNTER 2018-07-12 22:37 | Emergency (ER) | payer MEDICAID ==
[2018-07-12 22:45] VITALS: BMI 34.2
--- NOTE | 2018-07-12 23:20 | ED PDOC ---
Arrival/HPI - General Historian: Patient - History of Present Illness Narrative History of Present Illness (Text): 07/12/18 23:17 42M w/ past medical history significant for coronary artery disease status post CT,aortic valve repair, type 2 diabetes, hypertension, depression, and anxiety who presents w/ primary complaints of hiccups and chest pain over the past 3 days. Patient is complaining of a substernal L sided chest pain described as a squeezing sensation. Patient does report some SOB / STONER which he has at baseline no worse than prior presentation. Chest pain has associated radiation into his left neck as well as associated nausea. Patient is complaining of flu-like symptoms at this time. Remainder 12 system ROS is otherwise negative at this time. PMD: Anaya Cuello Allergies: Pravastatin Home Rx: METFORMIN 1000 BID LASIX 20 DAILY PLAVIX 75 DAILY COREG 25 BID ASA 81 QD ALGOLIPTIN 25 DAILY IRBESARTAN 300 DAILY LIPITOR 20 DAILY PAXIL 20 DAILY VISTARIL 20 DAILY KCHLOR 20 DAILY VIT D3 PMH / PSH as above Social: Denies current or prior EtOH, Tobacco, Illicit drug use 07/13/18 01:06 Time/Duration: Prior to Arrival, < week Symptom Onset: Gradual Symptom Course: Worsening Quality: Pressure, Tightness Severity Level: 10 <Derek Alfaro - Last Filed: 07/13/18 01:06> <Adam Bueno - Last Filed: 07/14/18 05:43> - General Chief Complaint: Chest Pain Past Medical History - Provider Review Nursing Documentation Reviewed: Yes - Infectious Disease Hx of Infectious Diseases: None - Cardiac Hx Hypertension: Yes - Endocrine/Metabolic Hx Diabetes Mellitus Type 2: Yes - Musculoskeletal/Rheumatological Hx Falls: No - Psychiatric Hx Anxiety: Yes Hx Depression: Yes Hx Substance Use: No - Surgical History Hx Open Heart Surgery: Yes Other/Comment: aortic valve repair. <Derek Alfaro - Last Filed: 07/13/18 01:06> Family/Social History - Physician Review Nursing Documentation Reviewed: Yes Family/Social History: Diabetes, Hypertension, CAD/CT Smoking Status: Never Smoked Hx Alcohol Use: Yes (Red wine once in awhile) Hx Substance Use: No <Derek Alfaro - Last Filed: 07/13/18 01:06> Allergies/Home Meds <Derek Alfaro - Last Filed: 07/13/18 01:06> <XimenaAdam - Last Filed: 07/14/18 05:43> Allergies/Adverse Reactions: Allergies pravastatin Allergy (Verified 07/12/18 22:52) PAIN stomach cramp pain. seasonal allergy Allergy (Uncoded 07/12/18 22:52) ITCHING Home Medications: Home Meds Medication Instructions Recorded Confirmed Alogliptin Benzoate [Alogliptin] 25 mg PO DAILY 09/12/17 07/13/18 Aspirin 325 mg PO DAILY 09/12/17 07/13/18 Atorvastatin [Lipitor] 20 mg PO DAILY 09/12/17 07/13/18 Carvedilol [Coreg] 25 mg PO BID 09/12/17 07/13/18 Clopidogrel [Plavix] 75 mg PO DAILY 09/12/17 07/13/18 MetFORMIN [glucoPHAGE] 1,000 mg PO BID 09/12/17 07/13/18 PARoxetine [Paxil] 20 mg PO DAILY 09/12/17 07/13/18 Multivit with Calcium,Iron,Min 1 tab PO DAILY 01/14/18 07/13/18 [Multiple Vitamins For Women] Cholecalciferol (Vitamin D3) 1 tab PO DAILY 07/12/18 07/13/18 [Vitamin D3] Furosemide [Lasix] 20 mg PO DAILY 07/12/18 07/13/18 Hydroxyzine Pamoate [Vistaril] 25 mg PO HS PRN 07/12/18 07/13/18 Irbesartan [Avapro] 300 mg PO DAILY 07/12/18 07/13/18 Potassium Chloride [Klor-Con M20] 20 meq PO DAILY 07/12/18 07/13/18 Review of Systems - Review of Systems Constitutional: Other (Chills). absent: Fevers Eyes: Normal ENT: Normal Respiratory: SOB Cardiovascular: Chest Pain, STONER. absent: Edema Gastrointestinal: Normal. absent: Abdominal Pain, Constipation, Diarrhea, Nausea, Vomiting Genitourinary Male: Normal Musculoskeletal: Normal Skin: Normal Neurological: Normal Endocrine: Normal Hemo/Lymphatic: Normal Psychiatric: Normal <Derek Alfaro - Last Filed: 07/13/18 01:06> Physical Exam Vital Signs Temp Pulse Resp BP Pulse Ox 07/12/18 23:14 98.0 F 93 H 18 133/90 100 Temperature: Afebrile Blood Pressure: Normal Pulse: Regular Respiratory Rate: Normal Appearance: Positive for: Well-Appearing, Non-Toxic, Comfortable Pain Distress: None Mental Status: Positive for: Alert and Oriented X 3 - Systems Exam Head: Present: Atraumatic, Normocephalic Pupils: Present: PERRL Extroacular Muscles: Present: EOMI Conjunctiva: Present: Normal Respiratory/Chest: Present: Clear to Auscultation, Good Air Exchange. No: Respiratory Distress Cardiovascular: Present: Regular Rate and Rhythm, Normal S1, S2. No: Murmurs Abdomen: No: Tenderness, Distention Upper Extremity: No: Edema Lower Extremity: Present: NORMAL PULSES. No: Edema Neurological: Present: GCS=15, CN II-XII Intact Skin: Present: Warm, Dry, Normal Color Psychiatric: Present: Alert, Oriented x 3, Normal Concentration <Derek Alfaro - Last Filed: 07/13/18 01:06> Vital Signs Temp Pulse Resp BP Pulse Ox 07/12/18 23:14 98.0 F 93 H 18 133/90 100 <Adam Bueno - Last Filed: 07/14/18 05:43> Medical Decision Making ED Course and Treatment: 07/12/18 23:30 42M w/ substernal chest pain x3 days - squeezing like in nature w/ associated shortness of breath / stoner. R/O cardiac causes Plan: CBC/CMP TROP/CKMB EKG CXR RAPID FLU Progress Notes: EKG - NSR 86 w/ previously seen RBBB and Left [place] deviation - no ischemic changes noted 07/13/18 00:35 CBC/CMP wnl Patient is influenza positive Will start tamiflu Troponin negative 07/13/18 01:[address] Keane who accepts patient to observation for ACS r/o - RAD Interpretation Radiology Orders: 07/12/18 22:55 CHEST PORTABLE [RAD] Stat - EKG Interpretation EKG Interpretation (Text): 07/12/18 23:36 EKG - NSR 86 w/ previously seen RBBB and Left [place] deviation - no ischemic changes noted Interpreted by ED Physician: Yes Type: 12 lead EKG <Derek Alfaro - Last Filed: 07/13/18 01:06> ED Course and Treatment: Impression: Pt seen and evaluated with medical staff assistant. Aware and agree with HPI, clinical findings, plan, and management. Pt, whose past medical history includes CAD s/p CT, aortic valve repair, diabetes, hypertension, depression, and anxiety, presented for hiccups and chest pain. Plan: -- EKG -- Chest X-ray -- Labs, cardiac enzymes -- Rapid influenza -- Reassess and disposition - RAD Interpretation Radiology Orders: 07/12/18 22:55 CHEST PORTABLE [RAD] Stat <Adam Bueno - Last Filed: 07/14/18 05:43> - PA / PRE PLANNING ADVISOR / Resident Statement / has reviewed & agrees with the documentation as recorded. / has examined the patient and agrees with the treatment plan. <Adam Bueno - Last Filed: 07/14/18 05:43> Disposition/Present on Arrival - Present on Arrival Any Indicators Present on Arrival: No History of DVT/PE: No History of Uncontrolled Diabetes: No Urinary Catheter: No History of Decub. Ulcer: No History Surgical Site Infection Following: None - Disposition Have Diagnosis and Disposition been Completed?: Yes Disposition Time: 01:11 Patient Plan: Admission, Observation <Derek Alfaro - Last Filed: 07/13/18 01:06> <Adam Bueno - Last Filed: 07/14/18 05:43> - Disposition Diagnosis: Chest pain Disposition: HOME/ ROUTINE Condition: STABLE Discharge Instructions (ExitCare): Chest Pain Additional Instructions: Please follow up with PCP for 7-14 days. Please take all home medications as prescribed. Please take tamiflu for 5 days as prescribed. Please return to the emergency department if you have any new or concerning symptoms. Please return to the emergency department if you have any new or concerning symptoms. Prescriptions: Oseltamivir Cap [Tamiflu Cap] 75 mg PO BID 5 Days #10 capsule Referrals: Anaya Cuello MD [Primary Care Provider] -
[2018-07-12 23:21] LABS: EOS # 0.1 (0.0-0.7); EOS % 2.1 % (1.5-5.0); HEMOGLOBIN 13.9 g/dL (14.0-18.0); LYMPH # 1.1 (1.2-3.4); LYMPH % 18.5 % (22.0-35.0); MEAN CELL VOLUME 80.8 fl (80.0-105.0); MEAN CORPUSCULAR HEMOGLOBIN 27.9 pg (25.0-35.0); MEAN CORPUSCULAR HGB CONC 34.5 g/dl (31.0-37.0); MEAN PLATELET VOLUME 9.1 fl (7.0-11.0); MONO # 0.4 (0.1-0.6); MONO % 6.1 % (1.0-6.0); RBC 4.99 10^6/uL (3.5-6.1); RED CELL DISTRIBUTION WIDTH 13.9 % (11.5-14.5); WHITE BLOOD COUNT 5.7 10^3/uL (4.5-11.0)
[2018-07-12 23:39] LABS: ALB/GLOB RATIO 1.4 (1.1-1.8); ALBUMIN 4.9 g/dL (3.0-4.8); ALT/SGPT 48 U/L (7-56); AST/SGOT 56 U/L (17-59); BLOOD UREA NITROGEN 17 mg/dL (7-21); CALCIUM 10.7 mg/dL (8.4-10.5); GFR NON-AFRICAN AMERICAN > 60
[2018-07-12 23:49] LABS: TROPONIN I < 0.01 ng/mL
[2018-07-13 02:14] LABS: CK-MB 1.2 ng/mL (0.0-3.6)
--- NOTE | 2018-07-13 03:12 | CP.PCM.HP ---
<Fabiano Kirk - Last Filed: 07/13/18 03:05> History of Present Illness - History of Present Illness History of Present Illness: Fabiano Kirk, PGY1 Medicine H&P for Dr. Keane cc: "hiccups with associated chest pain" Patient is a 42M with PMHx significant for CAD status post PA,aortic valve repair, type 2 diabetes, HTN, HLD, CHF-rEF, depression, and anxiety who presented for hiccups with associated chest pain over the past 3 days. Medical team evaluated patient. Patient is complaining of a substernal L sided chest pain described as a squeezing sensation. Patient does report some shortness of breath and nausea as well. Chest pain has associated radiation into his left neck. He also endorsed some headaches and chills. Denies fevers, abdominal pain, vomiting, diarrhea, weight loss, night sweats, fatigue, bowel/bladder changes. Denies sick contacts and recent travel. He did not receive the flu shot. A full 12 point ROS was conducted and unremarkable except as stated above. PMD: Dr. Anaya Cuello PMH: CAD status post PA,aortic valve repair, type 2 diabetes, HTN, HLD, CHF-rEF, depression, and anxiety PSH: Aortic valve repair, CABG (2 years ago) FH: HTN, DM, dementia (mom) Meds: see MAR Allergies: pravastatin (muscle cramps) Social: Denies tobacco and drug use; 1 wine glass per month Present on Admission - Present on Admission Any Indicators Present on Admission: No Review of Systems - Review of Systems All systems: reviewed and no additional remarkable complaints except (as per HPI) Past Patient History - Infectious Disease Hx of Infectious Diseases: None - Past Social History Smoking Status: Never Smoked - CARDIAC Hx Hypertension: Yes - ENDOCRINE/METABOLIC Hx Diabetes Mellitus Type 2: Yes - MUSCULOSKELETAL/RHEUMATOLOGICAL Hx Falls: No - PSYCHIATRIC Hx Anxiety: Yes Hx Depression: Yes Hx Substance Use: No - SURGICAL HISTORY Hx Open Heart Surgery: Yes Other/Comment: aortic valve repair. Meds Allergies/Adverse Reactions: Allergies Allergy/AdvReac Type Severity Reaction Status Date / Time pravastatin Allergy PAIN Verified 07/12/18 22:52 seasonal allergy Allergy ITCHING Uncoded 07/12/18 22:52 Physical Exam - Constitutional Appears: No Acute Distress - Head Exam Head Exam: ATRAUMATIC, NORMAL INSPECTION, NORMOCEPHALIC - Eye Exam Eye Exam: EOMI, Normal appearance Pupil Exam: NORMAL ACCOMODATION - ENT Exam ENT Exam: Mucous Membranes Moist - Respiratory Exam Respiratory Exam: Clear to Auscultation Bilateral, NORMAL BREATHING PATTERN. absent: Accessory Muscle Use, Chest Wall Tenderness, Rales, Rhonchi, Wheezes - Cardiovascular Exam Cardiovascular Exam: RRR, +S1, +S2. absent: Systolic Murmur Additional comments: CABG scar on chest wall. - GI/Abdominal Exam GI & Abdominal Exam: Normal Bowel Sounds, Soft. absent: Firm, Guarding, Rebound, Rigid, Tenderness - Extremities Exam Extremities exam: Positive for: full ROM, normal capillary refill, normal inspection, pedal pulses present. Negative for: calf tenderness, tenderness - Back Exam Back exam: NORMAL INSPECTION - Neurological Exam Neurological exam: Alert, CN II-XII Intact, Oriented x3 - Psychiatric Exam Psychiatric exam: Normal Affect, Normal Mood - Skin Skin Exam: Dry, Intact, Normal Color, Warm Results - Vital Signs Recent Vital Signs: Last Vital Signs Temp 98.0 F 07/12/18 23:14 Pulse 86 07/13/18 01:31 Resp 18 07/13/18 01:31 BP 130/80 07/13/18 01:31 Pulse Ox 98 07/13/18 01:31 - Labs Result Diagrams: 07/12/18 23:16 07/12/18 23:16 Labs: Laboratory Results - last 24 hr 07/12/18 07/12/18 07/12/18 23:16 23:16 23:16 WBC 5.7 RBC 4.99 Hgb 13.9 L Hct 40.3 L MCV 80.8 MCH 27.9 MCHC 34.5 RDW 13.9 Plt Count 257 MPV 9.1 Neut % (Auto) 73.3 H Lymph % (Auto) 18.[address] [facility] % (Auto) 6.1 H Eos % (Auto) 2.1 Baso % (Auto) 0.0 Lymph # (Auto) 1.[address] [facility] # (Auto) 0.4 Eos # (Auto) 0.1 Baso # (Auto) 0.00 Absolute Neuts (auto) 4.21 Sodium 135 Potassium 4.1 Chloride 99 Carbon Dioxide 24 Anion Gap 16 BUN 17 Creatinine 1.2 Est GFR ( Amer) > 60 Est GFR (Non-Af Amer) > 60 Random Glucose 123 H Calcium 10.7 H Total Bilirubin 0.5 AST 56 ALT 48 Alkaline Phosphatase 58 Lactate Dehydrogenase Total Creatine Kinase CK-MB (CK-2) CK-MB (CK-2) % Troponin I < 0.01 Total Protein 8.4 H Albumin 4.9 H Globulin 3.6 Albumin/Globulin Ratio 1.4 TSH 3rd Generation Influenza Typ A,B (EIA) Pos for influenza a H 07/12/18 07/12/18 23:16 23:16 WBC RBC Hgb Hct MCV MCH MCHC RDW Plt Count MPV Neut % (Auto) Lymph % (Auto) [facility] % (Auto) Eos % (Auto) Baso % (Auto) Lymph # (Auto) [facility] # (Auto) Eos # (Auto) Baso # (Auto) Absolute Neuts (auto) Sodium Potassium Chloride Carbon Dioxide Anion Gap BUN Creatinine Est GFR ( Amer) Est GFR (Non-Af Amer) Random Glucose Calcium Total Bilirubin AST ALT Alkaline Phosphatase Lactate Dehydrogenase 656 Total Creatine Kinase 1011 H CK-MB (CK-2) 1.2 CK-MB (CK-2) % Cancelled Troponin I Total Protein Albumin Globulin Albumin/Globulin Ratio TSH 3rd Generation 3.36 Influenza Typ A,B (EIA) Assessment & Plan - Assessment and Plan (Free Text) Assessment: Patient is a 42M with PMHx significant for CAD status post PA,aortic valve repair, type 2 diabetes, hypertension, depression, and anxiety who presented for hiccups with associated chest pain over the past 3 days. Patient admitted for chest pain - r/o ACS and influenza. Plan: Chest Pain - r/o ACS - chlorpromazine 25mg PO q6 prn for hiccups - trend troponins q6 - lipid panel - TSH - hemoglobin a1c - resume ASA 325mg daily home med - will observe on remote tele - Cardio on consult (Dr. Loomis) given significant cardiac hx and risk factors - EKG: NSR at 86 bpm. Evidence of RBBB and V1-V3 T wave inversions (chronic; seen on previous EKG). - CXR: no infiltrate or consolidation Influenza - tamiflu 75mg PO BID - isolation precaution - flu positive in ED CHF-rEF - Last echo on 01/2018: EF 21% with global hypokinesis - c/w lasix, losartan, and coreg home meds DM II - ISS (low) - Accuchecks CAD s/p PA with CABG - c/w ASA home med - c/w plavix home med HLD - c/w lipitor 20mg daily home med HTN - c/w coreg 25mg PO BID home med - c/w cozaar 100mg PO daily home med Anxiety and Depression - c/w paxil home med DVT ppx: scd GI ppx: ptx Diet: HHD Dispo: Monitor patient on remote tele. Further recs from cardio. Case was discussed and reviewed with Attending Physician, Dr. Keane <Tyson Keane - Last Filed: 07/16/18 06:55> Results - Vital Signs Recent Vital Signs: Last Vital Signs Temp 98.2 F 07/13/18 14:21 Pulse 77 07/13/18 14:21 Resp 16 07/13/18 14:21 BP 121/63 07/13/18 14:21 Pulse Ox 98 07/13/18 14:21 - Labs Result Diagrams: 07/13/18 06:50 07/13/18 06:50 Attending/Attestation - Attestation I have personally seen and examined this patient.: Yes I have fully participated in the care of the patient.: Yes I have reviewed all pertinent clinical information: Yes
[2018-07-13] MEDS ORDERED: Pantoprazole 40 mg EC Tab PO SCH (06:00)
[2018-07-13 07:05] LABS: EOS # 0.1 (0.0-0.7); EOS % 2.5 % (1.5-5.0); HEMOGLOBIN 13.4 g/dL (14.0-18.0); LYMPH # 1.1 (1.2-3.4); LYMPH % 24.7 % (22.0-35.0); MEAN CELL VOLUME 81.3 fl (80.0-105.0); MEAN CORPUSCULAR HEMOGLOBIN 27.3 pg (25.0-35.0); MEAN CORPUSCULAR HGB CONC 33.6 g/dl (31.0-37.0); MONO # 0.5 (0.1-0.6); MONO % 11.5 % (1.0-6.0); RBC 4.91 10^6/uL (3.5-6.1); WHITE BLOOD COUNT 4.4 10^3/uL (4.5-11.0)
[2018-07-13 07:19] LABS: ALB/GLOB RATIO 1.3 (1.1-1.8); ALBUMIN 4.6 g/dL (3.0-4.8); ALT/SGPT 48 U/L (7-56); AST/SGOT 43 U/L (17-59); BLOOD UREA NITROGEN 15 mg/dL (7-21); GFR NON-AFRICAN AMERICAN > 60; HDL CHOLESTEROL 38 mg/dL (29-60)
[2018-07-13 07:24] LABS: LDL CHOLESTEROL 102 mg/dL (0-129); TROPONIN I < 0.01 ng/mL
[2018-07-13 07:28] VITALS: RESP 16
[2018-07-13] MEDS: Insulin Lispro (humaLOG) LOW Coverage SC SCH ×2 (07:29→11:58)
--- NOTE | 2018-07-13 09:44 | RAD ---
Date of service: 07/12/2018 HISTORY: Chest Pain COMPARISON: Portable chest 01/14/2018 FINDINGS: LUNGS: No active pulmonary disease. PLEURA: No significant pleural effusion identified, no pneumothorax apparent. CARDIOVASCULAR: No aortic atherosclerotic calcification present. Stable cardiomegaly. No pulmonary vascular congestion. OSSEOUS STRUCTURES: With sternotomy wires reiterated. VISUALIZED UPPER ABDOMEN: Normal. OTHER FINDINGS: None. IMPRESSION: Stable cardiomegaly. No interval acute cardiopulmonary disease appreciated.
--- NOTE | 2018-07-13 10:03 | CARD ---
APPROVED REPORT Date of service: 07/12/2018 EKG Measurement Heart [id number] <Conclusion> Normal sinus rhythm Left axis deviation Right bundle branch block Minimal voltage criteria for LVH, may be normal variant Abnormal ECG
--- NOTE | 2018-07-13 12:15 | CON ---
DATE: 07/13/2018 CARDIOLOGY CONSULTATION REASON FOR CONSULTATION: History of aortic valve repair. HISTORY OF PRESENT ILLNESS: The patient is a 42-year-old male, who has a history of aortic valve repair few years ago at [facility], history of hypertension and depression, presents because of hiccup as well as chest pain and abdominal discomfort over the past 3 years. The patient stated that he followed recently with his all round butcher at [facility], but does not recall for sure if he had a cardiac catheterization done at that time. The patient is also experiencing flu-like symptoms. The patient did report low grade fever. SOCIAL HISTORY: Nonsmoker, occasional drinker. MEDICATIONS: Aspirin 325 mg once a day, Coreg 25 mg once a day, Cozaar 100 mg once a day, Lasix 20 mg p.o. once a day, Lipitor 20 mg once a day, Paxil 20 mg once a day, Plavix 75 mg once a day, Tamiflu 75 mg twice a day, Thorazine 25 mg every 6 hours p.r.n. PAST MEDICAL HISTORY: History of aortic valve repair. Questionable history of coronary artery disease. PHYSICAL EXAMINATION: GENERAL: The patient is a middle-aged male, who does not appear to be in acute distress. VITAL SIGNS: Blood pressure , heart rate 81, respirations 16, temperature 99.1. HEENT: Normocephalic. CHEST: Clear. HEART: S1 and S2 regular. ABDOMEN: Soft. EXTREMITIES: No edema. LABORATORY DATA: The SMA-7 is within normal limits except for glucose of 121. Two sets of troponins are negative. Triglycerides 168, total cholesterol 203, both are elevated. TSH level is within normal limits. Today's hemoglobin and hematocrit are 15.4 and 39.9, white count 4.4, platelet count 226,000. Influenza A serology is positive. EKG revealed sinus rhythm at rate of 86, right bundle-branch block, LVH by voltage, left axis deviation. Echocardiographic study in January of last year revealed severely reduced left ventricular systolic function with global hypokinesis and mild MR and mild TR. Chest x-ray revealed borderline cardiomegaly with mild CHF. Sternotomy sutures are noted. ASSESSMENT: 1. Influenza type A. 2. Cardiomyopathy. 3. Status post aortic valve repair few years ago at [facility]. 5. Hyperlipidemia. RECOMMENDATIONS: Continue aspirin 325 mg once a day, Coreg 25 mg once a day, Cozaar 100 mg once a day, Lasix 20 mg once a day, Lipitor 20 mg once a day, Plavix 75 mg once a day, Tamiflu at 75 mg twice a day. Obtain PT, INR, and urine for drug screen. Jaskaran Loomis MD
[2018-07-13 13:11] LABS: INR 1.12; PARTIAL THROMBOPLASTIN TIME 30.6 Seconds (26.9-38.3); PROTHROMBIN TIME 12.7 SECONDS (9.4-12.5)
[2018-07-13] MEDS ORDERED: Pneumococcal 23-Valent Vaccine IM ONE (13:33)
[2018-07-13] MEDS ORDERED: Influenza Vaccine 60 mcg/0.5 mL SYR (4YR UP) IM ONE (13:33)
[2018-07-13 14:22] VITALS: BP 121/63; PULSE 77; TEMP 98.2; O2SAT 98
--- NOTE | 2018-07-13 16:41 | CP.PCM.DIS ---
<MaicolshandaNegin ramírez - Last Filed: 07/13/18 16:38> Provider - Provider Date of Admission: 07/13/18 01:05 Attending physician: Amanda Alfaro DO Primary care physician: Anaya Cuello MD Consults: 07/13/18 02:17 Physician Consult Routine Comment: Consulting Provider: Jaskaran Loomis Consulting Physician: Jaskaran Loomis Reason for Consult: chest pain 07/13/18 12:50 Social Work Referral Routine Comment: dc plan Physician Instructions: Reason For Exam: assess 07/13/18 13:33 Inpatient SHIRT MARKER Core Measures Referral Routine Comment: cp Physician Instructions: Reason For Exam: assess Transition In Care/Readmission Reduction Routine Comment: cp Physician Instructions: Reason For Exam: assess Time Spent in preparation of Discharge (in minutes): 60 Diagnosis - Discharge Diagnosis (1) Chest pain Status: Acute Hospital Course - Lab Results Lab Results: Most Recent Lab Values WBC 4.4 10^3/uL (4.5-11.0) L D 07/13/18 06:50 RBC 4.91 10^6/uL (3.5-6.1) 07/13/18 06:50 Hgb 13.4 g/dL (14.0-18.0) L 07/13/18 06:50 Hct 39.9 % (42.0-52.0) L 07/13/18 06:50 MCV 81.3 fl (80.0-105.0) 07/13/18 06:50 MCH 27.3 pg (25.0-35.0) 07/13/18 06:50 MCHC 33.6 g/dl (31.0-37.0) 07/13/18 06:50 RDW 14.0 % (11.5-14.5) 07/13/18 06:50 Plt Count 226 10^3/uL (120.0-450.0) 07/13/18 06:50 MPV 9.0 fl (7.0-11.0) 07/13/18 06:50 Neut % (Auto) 61.3 % (50.0-68.0) 07/13/18 06:50 Lymph % (Auto) 24.7 % (22.0-35.0) 07/13/18 06:50 Tucker % (Auto) 11.5 % (1.0-6.0) H 07/13/18 06:50 Eos % (Auto) 2.5 % (1.5-5.0) 07/13/18 06:50 Baso % (Auto) 0.0 % (0.0-3.0) 07/13/18 06:50 Lymph # (Auto) 1.1 (1.2-3.4) L 07/13/18 06:50 Tucker # (Auto) 0.5 (0.1-0.6) 07/13/18 06:50 Eos # (Auto) 0.1 (0.0-0.7) 07/13/18 06:50 Baso # (Auto) 0.00 K/mm3 (0.0-2.0) 07/13/18 06:50 Absolute Neuts (auto) 2.71 (1.4-6.5) 07/13/18 06:50 PT 12.7 SECONDS (9.4-12.5) H 07/13/18 12:50 INR 1.12 07/13/18 12:50 APTT 30.6 Seconds (26.9-38.3) 07/13/18 12:50 Sodium 136 mmol/L (132-148) 07/13/18 06:50 Potassium 4.3 mmol/L (3.6-5.0) 07/13/18 06:50 Chloride 101 mmol/L (98-107) 07/13/18 06:50 Carbon Dioxide 24 mmol/L (21-33) 07/13/18 06:50 Anion Gap 15 (10-20) 07/13/18 06:50 BUN 15 mg/dL (7-21) 07/13/18 06:50 Creatinine 1.2 mg/dl (0.8-1.5) 07/13/18 06:50 Est GFR ( Amer) > 60 07/13/18 06:50 Est GFR (Non-Af Amer) > 60 07/13/18 06:50 POC Glucose (mg/dL) 135 mg/dL (65-110) H 07/13/18 11:53 Random Glucose 121 mg/dL (70-110) H 07/13/18 06:50 Hemoglobin A1c 6.6 % (4.2-6.5) H 07/12/18 23:16 Calcium 10.0 mg/dL (8.4-10.5) 07/13/18 06:50 Total Bilirubin 0.6 mg/dL (0.2-1.3) 07/13/18 06:50 AST 43 U/L (17-59) 07/13/18 06:50 ALT 48 U/L (7-56) 07/13/18 06:50 Alkaline Phosphatase 56 U/L (38-126) 07/13/18 06:50 Lactate Dehydrogenase 656 U/L (333-699) 07/12/18 23:16 Total Creatine Kinase 1011 U/L (35-230) H 07/12/18 23:16 CK-MB (CK-2) 1.2 ng/mL (0.0-3.6) 07/12/18 23:16 CK-MB (CK-2) % Cancelled 07/12/18 23:16 Troponin I < 0.01 ng/mL 07/13/18 12:50 Total Protein 8.1 g/dL (5.8-8.3) 07/13/18 06:50 Albumin 4.6 g/dL (3.0-4.8) 07/13/18 06:50 Globulin 3.5 gm/dL 07/13/18 06:50 Albumin/Globulin Ratio 1.3 (1.1-1.8) 07/13/18 06:50 Triglycerides 168 mg/dL (35-160) H 07/13/18 06:50 Cholesterol 203 mg/dL (130-200) H 07/13/18 06:50 LDL Cholesterol Direct 102 mg/dL (0-129) 07/13/18 06:50 HDL Cholesterol 38 mg/dL (29-60) 07/13/18 06:50 TSH 3rd Generation 3.36 mIU/mL (0.46-4.68) 07/12/18 23:16 Influenza Typ A,B (EIA) Pos for influenza a (NEGATIVE) H 07/12/18 23:16 - Hospital Course Hospital Course: Negin Chowdhury, PGY-1, Internal Medicine Discharge Summary for Dr. Clark 42 year old male with past medical history significant for CAD status post [place], aortic valve repair, type 2 diabetes, hypertension, hyperlipidemia, congestive heart failure with reduced ejection fraction, depression, and anxiety presented for hiccups with associated chest pain over the past 3 days. Patient is complaining of a substernal left sided chest pain described as a squeezing sensation that radiates to the left neck. Patient also endorsed shortness of breath, nausea, headaches and chills. Patient denied any sick contacts and recent travel and states he did not receive the flu shot. Upon workup, EKG was sinus rhythm at 86bpm with right bundle branch block and V1-V3 T wave inversions which is unchanged from last EKG. Troponin were negative x3. CXR was negative. Of note, blood serology was positive for Influenza A. Patient was placed on droplet precaution and started on Tamiflu 75mg PO BID. Patient was stable and ready for discharge today. He reported feeling better with improvement in his symptoms. He was told to continue his Tamiflu for 5 days along with home medication regimen and to follow up with PCP. In addition, he was told to return to the emergency department if he had any recurring or new concerning symptoms. This is a brief summary of the events that occurred during this hospital stay. For more information, please refer to the hospital documentation. - Date & Time of H&P Date of H&P: 07/13/18 Time of H&P: 03:05 Discharge Exam - Head Exam Head Exam: ATRAUMATIC, NORMAL INSPECTION, NORMOCEPHALIC - Eye Exam Eye Exam: EOMI, PERRL - Respiratory Exam Respiratory Exam: Clear to PA & Lateral, NORMAL BREATHING PATTERN - Cardiovascular Exam Cardiovascular Exam: REGULAR RHYTHM Additional comments: pain with palpation of chest - GI/Abdominal Exam GI & Abdominal Exam: Normal Bowel Sounds, Soft. absent: Tenderness - Extremities Exam Extremities exam: full ROM - Neurological Exam Neurological exam: Alert, CN II-XII Intact, Oriented x3 - Skin Skin Exam: Dry, Intact, Normal Color Discharge Plan - Discharge Medications Prescriptions: Oseltamivir Cap [Tamiflu Cap] 75 mg PO BID 5 Days #10 capsule - Follow Up Plan Condition: STABLE Disposition: HOME/ ROUTINE Instructions: Chest Pain Additional Instructions: Please follow up with PCP for 7-14 days. Please take all home medications as prescribed. Please take tamiflu for 5 days as prescribed. Please return to the emergency department if you have any new or concerning symptoms. Please return to the emergency department if you have any new or concerning symptoms. Referrals: Anaya Cuello MD [Primary Care Provider] - <Kate Clark - Last Filed: 07/13/18 16:51> Provider - Provider Date of Admission: 07/13/18 01:05 Attending physician: Amanda Alfaro DO Primary care physician: Anaya Cuello MD Consults: 07/13/18 02:17 Physician Consult Routine Comment: Consulting Provider: Jaskaran Loomis Consulting Physician: Jaskaran Loomis Reason for Consult: chest pain 07/13/18 12:50 Social Work Referral Routine Comment: dc plan Physician Instructions: Reason For Exam: assess 07/13/18 13:33 Inpatient SHIRT MARKER Core Measures Referral Routine Comment: cp Physician Instructions: Reason For Exam: assess Transition In Care/Readmission Reduction Routine Comment: cp Physician Instructions: Reason For Exam: assess Hospital Course - Lab Results Lab Results: Most Recent Lab Values WBC 4.4 10^3/uL (4.5-11.0) L D 07/13/18 06:50 RBC 4.91 10^6/uL (3.5-6.1) 07/13/18 06:50 Hgb 13.4 g/dL (14.0-18.0) L 07/13/18 06:50 Hct 39.9 % (42.0-52.0) L 07/13/18 06:50 MCV 81.3 fl (80.0-105.0) 07/13/18 06:50 MCH 27.3 pg (25.0-35.0) 07/13/18 06:50 MCHC 33.6 g/dl (31.0-37.0) 07/13/18 06:50 RDW 14.0 % (11.5-14.5) 07/13/18 06:50 Plt Count 226 10^3/uL (120.0-450.0) 07/13/18 06:50 MPV 9.0 fl (7.0-11.0) 07/13/18 06:50 Neut % (Auto) 61.3 % (50.0-68.0) 07/13/18 06:50 Lymph % (Auto) 24.7 % (22.0-35.0) 07/13/18 06:50 Tucker % (Auto) 11.5 % (1.0-6.0) H 02/27/19 06:50 Eos % (Auto) 2.5 % (1.5-5.0) 07/13/18 06:50 Baso % (Auto) 0.0 % (0.0-3.0) 07/13/18 06:50 Lymph # (Auto) 1.1 (1.2-3.4) L 07/13/18 06:50 Tucker # (Auto) 0.5 (0.1-0.6) 07/13/18 06:50 Eos # (Auto) 0.1 (0.0-0.7) 07/13/18 06:50 Baso # (Auto) 0.00 K/mm3 (0.0-2.0) 07/13/18 06:50 Absolute Neuts (auto) 2.71 (1.4-6.5) 07/13/18 06:50 PT 12.7 SECONDS (9.4-12.5) H 07/13/18 12:50 INR 1.12 07/13/18 12:50 APTT 30.6 Seconds (26.9-38.3) 07/13/18 12:50 Sodium 136 mmol/L (132-148) 07/13/18 06:50 Potassium 4.3 mmol/L (3.6-5.0) 07/13/18 06:50 Chloride 101 mmol/L (98-107) 07/13/18 06:50 Carbon Dioxide 24 mmol/L (21-33) 07/13/18 06:50 Anion Gap 15 (10-20) 07/13/18 06:50 BUN 15 mg/dL (7-21) 07/13/18 06:50 Creatinine 1.2 mg/dl (0.8-1.5) 07/13/18 06:50 Est GFR ( Amer) > 60 07/13/18 06:50 Est GFR (Non-Af Amer) > 60 07/13/18 06:50 POC Glucose (mg/dL) 135 mg/dL (65-110) H 07/13/18 11:53 Random Glucose 121 mg/dL (70-110) H 07/13/18 06:50 Hemoglobin A1c 6.6 % (4.2-6.5) H 07/12/18 23:16 Calcium 10.0 mg/dL (8.4-10.5) 07/13/18 06:50 Total Bilirubin 0.6 mg/dL (0.2-1.3) 07/13/18 06:50 AST 43 U/L (17-59) 07/13/18 06:50 ALT 48 U/L (7-56) 07/13/18 06:50 Alkaline Phosphatase 56 U/L (38-126) 07/13/18 06:50 Lactate Dehydrogenase 656 U/L (333-699) 07/12/18 23:16 Total Creatine Kinase 1011 U/L (35-230) H 07/12/18 23:16 CK-MB (CK-2) 1.2 ng/mL (0.0-3.6) 07/12/18 23:16 CK-MB (CK-2) % Cancelled 07/12/18 23:16 Troponin I < 0.01 ng/mL 07/13/18 12:50 Total Protein 8.1 g/dL (5.8-8.3) 07/13/18 06:50 Albumin 4.6 g/dL (3.0-4.8) 07/13/18 06:50 Globulin 3.5 gm/dL 07/13/18 06:50 Albumin/Globulin Ratio 1.3 (1.1-1.8) 07/13/18 06:50 Triglycerides 168 mg/dL (35-160) H 07/13/18 06:50 Cholesterol 203 mg/dL (130-200) H 07/13/18 06:50 LDL Cholesterol Direct 102 mg/dL (0-129) 07/13/18 06:50 HDL Cholesterol 38 mg/dL (29-60) 07/13/18 06:50 TSH 3rd Generation 3.36 mIU/mL (0.46-4.68) 07/12/18 23:16 Influenza Typ A,B (EIA) Pos for influenza a (NEGATIVE) H 07/12/18 23:16 Attending/Attestation - Attestation I have personally seen and examined this patient.: Yes I have fully participated in the care of the patient.: Yes I have reviewed all pertinent clinical information, including history, physical exam and plan: Yes Notes (Text): 07/13/18 16:48 Patient was seen and examined with medical office supervisor. 42 year old male with past medical history significant for CAD status post [place], aortic valve repair, type 2 diabetes, hypertension, hyperlipidemia, congestive heart failure with reduced ejection fraction, depression, and anxiety was admitted with URI symptoms , found to have influenza A infection, also had atypi arely chest pain. He is afebrile, not in respiratory distress.He has chest wall tenderness.EKG is unchaged.Serial troponins are normal. Cardiology evaluation is appreciated. He will be discharged home on Tamiflu 75 mg PO BID. He is euvolemic at the time of discharge.He was given education about Influenza infection prior to discharge. Management plan was discussed in detail with patient. Education was provided.
== END 2018-07-13 14:24 | disposition home or self-care (01) ==
LOC: ED 22:37 → ERH 07-13 01:05 → UNDOADMOB 07-13 01:05
DX: R07.9 Chest pain, unspecified (principal); I25.10 Atherosclerotic heart disease of native coronary artery without angina pectoris; E11.9 Type 2 diabetes mellitus without complications; I10 Essential (primary) hypertension; I25.2 Old myocardial infarction

== ENCOUNTER 2018-10-03 14:43 | Emergency (ER) | payer OTHER, MEDICAID ==
[2018-10-03 14:43] VITALS: BMI 34.2
[2018-10-03 15:19] VITALS: BP 134/74; PULSE 78; RESP 18; TEMP 98.3; O2SAT 99
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
== END 2018-10-03 17:53 | disposition home or self-care (01) ==
LOC: ED 14:43
DX: M62.838 Other muscle spasm (principal); E11.9 Type 2 diabetes mellitus without complications; I10 Essential (primary) hypertension; I25.10 Atherosclerotic heart disease of native coronary artery without angina pectoris; I25.2 Old myocardial infarction
CPT/HCPCS: 96372; 99283; J1885